=== PATIENT | female | born 1965 | race Caucasian/White ===

== ENCOUNTER 2019-11-11 19:44 | Inpatient (IN) | payer SELFPAY ==
[~2019-11-11] VITALS: Ht 157.5 cm; Wt 66.0 kg
[2019-11-11 20:43] LABS: BILIRUBIN,URINE NEGATIVE (NEG); CLARITY,URINE CLEAR; COLOR,URINE YELLOW; NITRITE,URINE NEGATIVE (NEG); PH,URINE 5.5; PROTEIN,URINE 100 mg/dL (NEG-TRACE)
[2019-11-11] MEDS ORDERED: fentaNYL PF VIAL 100 MCG/2 ML VIAL IV PRN (20:45)
[2019-11-11 20:54] LABS: BASO # 0.1 x10^3/uL (0.0-0.2); BASO % 1 % (0-3); EOS # 0.2 x10^3/uL (0.0-0.7); EOS % 2 % (0-3); HEMATOCRIT 37.1 % (36.0-47.0); HEMOGLOBIN 12.1 g/dL (12.0-15.5); LYMPH # 0.9 x10^3/uL (1.0-4.8); LYMPH % 12 % (24-48); MEAN CORPUSCULAR HEMOGLOBIN 28 pg (25-35); MEAN CORPUSCULAR HGB CONC 33 g/dL (31-37); MEAN CORPUSCULAR VOLUME 87 fL (79-100); MONO # 0.6 x10^3/uL (0.0-1.1); MONO % 7 % (0-9); NEUT % 78 % (31-73); PLATELET COUNT 213 x10^3/uL (140-400); RED BLOOD COUNT 4.26 x10^6/uL (3.50-5.40); RED CELL DISTRIBUTION WIDTH 14.8 % (11.5-14.5); WHITE BLOOD COUNT 7.7 x10^3/uL (4.0-11.0)
[2019-11-11 20:55] LABS: BARBITURATES NEG (NEG); BENZODIAZEPINES NEG (NEG); CANNABINOIDS POS (NEG); COCAINE NEG (NEG); METHADONE NEG (NEG); OPIATES NEG (NEG); PHENCYCLIDINE NEG (NEG)
[2019-11-11 20:58] LABS: AMPHETAMINE/METHAMPHETAMINE POS (NEG)
[2019-11-11 20:59] LABS: BACTERIA,URINE FEW /HPF (0-FEW); HYALINE CASTS, URINE OCCASIONAL /HPF; SQUAMOUS EPITHELIAL CELL,UR MOD /LPF
[2019-11-11 21:03] LABS: PROTHROMBIN TIME PATIENT 14.8 SEC (11.7-14.0)
[2019-11-11 21:04] LABS: CALCIUM 8.7 mg/dL (8.5-10.1); CREATININE 2.1 mg/dL (0.6-1.0); GFR 24.4
[2019-11-11 21:12] LABS: ALBUMIN 3.4 g/dL (3.4-5.0); ALBUMIN/GLOBULIN RATIO 0.9 (1.0-1.7); MAGNESIUM 1.6 mg/dL (1.8-2.4); TOTAL BILIRUBIN 0.5 mg/dL (0.2-1.0); TOTAL PROTEIN 7.3 g/dL (6.4-8.2)
--- NOTE | 2019-11-11 22:45 | RAD ---
CT abdomen and pelvis without contrast: Reason for examination: Abdominal pain and swelling. Helical images were obtained through the abdomen and pelvis with no intravenous contrast administered. Reconstruction was performed in sagittal and coronal planes. Exposure: One or more of the following individualized dose reduction techniques were utilized for this examination: 1. Automated exposure control 2. Adjustment of the mA and/or kV according to patient size 3. Use of iterative reconstruction technique. The lung epperson show calcified granuloma in the left lower lobe. The heart size appears to be enlarged with a small pericardial effusion. No focal abnormality seen at the liver but the liver does appear to be enlarged at 20.3 cm. The spleen shows diffuse granuloma. No abnormalities of seen at the adrenal glands or pancreas. Gallbladder is contracted with no choleliths but there is some fluid around the gallbladder which may be related to the small amount of ascites present in the abdomen. The kidneys show no renal masses, renal calculi, hydronephrosis or evidence of obstructive uropathy. There is a moderate amount of gastric content but no wall thickening or obstruction is seen. The small intestinal tract shows no abnormal dilatation or wall thickening and no small bowel obstruction is evident. No abnormality seen at the appendix. The colon shows presence of diverticulosis but no evidence of diverticulitis. The abdominal aorta and inferior vena cava show no acute abnormalities. The bladder is not distended. No abnormality seen at the uterus. No adnexal masses are seen. There is free fluid in the pelvis. No free air is seen in the abdomen or pelvis. There is diffuse soft tissue edema consistent with anasarca. No acute bony abnormalities are seen but there is degenerative disc disease with vacuum phenomena and a grade 1 anterolisthesis of L4-L5 and there is degenerative disc disease with vacuum phenomena without subluxation seen at the L5-S1 disc level. There also appear to be bilateral pars defects at the L4-5 and L5-S1 levels. IMPRESSION: Cardiomegaly with a small amount of pericardial effusion. Ascites around the liver, gallbladder, in the left colic gutter and in the pelvis. Contracted gallbladder but no cholelithiasis. Enlarged liver at 20.3 cm without a focal lesion. Diverticulosis without diverticulitis. Anasarca. 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 Electronically signed by: Yamila Francois MD (11/11/2019 10:42 PM) [facility]
[2019-11-11] MEDS ORDERED: ONDANSETRON PF 4 MG/2 ML VIAL. IV PRN (23:00)
[2019-11-11] MEDS ORDERED: MORPHINE SULFATE 4 MG/ML VIAL. IV PRN (23:00)
--- NOTE | 2019-11-11 23:09 | PHYS DOC ---
Past Medical History Past Medical History: CAD, Heart Disease, Hypertension, Renal Failure (ENA ESCOBEDO APRN) Attending Signature I have participated in the care of this patient and I have reviewed and agree with all pertinent clinical information above including history, exam, and recommendations. (JENIFER ALFONSO MD) Adult General Chief Complaint Chief Complaint: ABDOMINAL PAIN HPI HPI Patient is a 54 year old female with history of renal failure, CHF, CAD, hypertension, Ascites, hepatitis, who presents to the ED today complaining of fluid retention. She states for the last 24 hours she feels like she is retaining more fluid around her abdomen and legs. Patient states she's been told before she has kidney issues as well as cardiac issues and will be retaining fluids. She states she was admitted at [facility] week ago and then drained a couple liters of fluid from her abdomen. Patient denies any chest pain, denies any shortness of breath. She states she is not on any medications because she cannot afford (ENA ESCOBEDO APRN) Review of Systems Review of Systems Constitutional: Denies fever or chills [] Eyes: Denies change in visual acuity, redness, or eye pain [] HENT: Denies nasal congestion or sore throat [] Respiratory: Denies cough or shortness of breath [] Cardiovascular: Reports CHF GI: Reports fluid retention, denies nausea, vomiting, bloody stools or diarrhea [] : Denies dysuria or hematuria [] Musculoskeletal: Denies back pain or joint pain [] Integument: Denies rash or skin lesions [] Neurologic: Denies headache, focal weakness or sensory changes [] All other systems were reviewed and found to be within normal limits, except as documented in this note. (ENA ESCOBEDO APRN) Current Medications Current Medications Current Medications Medications (Trade) Dose Ordered Sig/Ju Start Time Stop Time Status Last Admin Dose Admin Fentanyl Citrate (Fentanyl 2ml Vial) 50 mcg PRN Q15MIN PRN 11/11/19 20:45 11/12/19 20:44 11/11/19 22:06 50 MCG (JENIFER ALFONSO MD) Allergies Allergies Allergies Coded Allergies Type Severity Reaction Last Updated Verified No Known Drug Allergies 11/11/19 No (JENIFER ALFONSO MD) Physical Exam Physical Exam Constitutional: Well developed, well nourished, no acute distress, non-toxic appearance. [] HENT: Normocephalic, atraumatic, bilateral external ears normal, oropharynx moist, no oral exudates, nose normal. [] Eyes: PERRLA, EOMI, conjunctiva normal, no discharge. [] Neck: Normal range of motion, no tenderness, supple, no stridor. [] Cardiovascular:Heart rate regular rhythm, no murmur [] Lungs & Thorax: Bilateral breath sounds clear to auscultation [] Abdomen: Rounded abdomen consistent with ascites. Bowel sounds normal, soft, no tenderness, no masses, no pulsatile masses. [] Skin: Warm, dry, no erythema, no rash. [] Back: No tenderness, no CVA tenderness. [] Extremities: No tenderness, no cyanosis, no clubbing, ROM intact, +1 edema noted to bilateral lower extremities Neurologic: Alert and oriented X 3, normal motor function, normal sensory function, no focal deficits noted. [] Psychologic: Affect normal, judgement normal, mood normal. [] (ENA ECSOBEDO APRN) Current Patient Data Vital Signs Vital Signs Date Time Temp Pulse Resp B/P (MAP) Pulse Ox O2 Delivery O2 Flow Rate FiO2 11/11/19 20:58 96 16 151/93 (112) 98 Room Air 11/11/19 20:18 97.7 97.7 (JENIFER ALFONSO MD) Lab Values Laboratory Tests Test 11/11/19 20:20 11/11/19 20:43 Urine Collection Type Void Urine Color Yellow Urine Clarity Clear Urine pH 5.5 Urine Specific [place] 1.015 Urine Protein 100 mg/dL (NEG-TRACE) Urine Glucose (UA) Negative mg/dL (NEG) Urine Ketones (Stick) Negative mg/dL (NEG) Urine Blood Negative (NEG) Urine Nitrite Negative (NEG) Urine Bilirubin Negative (NEG) Urine Urobilinogen Dipstick 1.0 mg/dL (0.2 mg/dL) Urine Leukocyte Esterase Small (NEG) Urine RBC 1-2 /HPF (0-2) Urine WBC 5-10 /HPF (0-4) Urine Squamous Epithelial Cells Mod /LPF Urine Bacteria Few /HPF (0-FEW) Urine Hyaline Casts Occasional /HPF Urine Opiates Screen Neg (NEG) Urine Methadone Screen Neg (NEG) Urine Barbiturates Neg (NEG) Urine Phencyclidine Screen Neg (NEG) Urine Amphetamine/Methamphetamine Pos (NEG) Urine Benzodiazepines Screen Neg (NEG) Urine Cocaine Screen Neg (NEG) Urine Cannabinoids Screen Pos (NEG) Urine Ethyl Alcohol Neg (NEG) White Blood Count 7.7 x10^3/uL (4.0-11.0) Red Blood Count 4.26 x10^6/uL (3.50-5.40) Hemoglobin 12.1 g/dL (12.0-15.5) Hematocrit 37.1 % (36.0-47.0) Mean Corpuscular Volume 87 fL (79-100) Mean Corpuscular Hemoglobin 28 pg (25-35) Mean Corpuscular Hemoglobin Concent 33 g/dL (31-37) Red Cell Distribution Width 14.8 % (11.5-14.5) H Platelet Count 213 x10^3/uL (140-400) Neutrophils (%) (Auto) 78 % (31-73) H Lymphocytes (%) (Auto) 12 % (24-48) L Monocytes (%) (Auto) 7 % (0-9) Eosinophils (%) (Auto) 2 % (0-3) Basophils (%) (Auto) 1 % (0-3) Neutrophils # (Auto) 6.0 x10^3/uL (1.8-7.7) Lymphocytes # (Auto) 0.9 x10^3/uL (1.0-4.8) L Monocytes # (Auto) 0.6 x10^3/uL (0.0-1.1) Eosinophils # (Auto) 0.2 x10^3/uL (0.0-0.7) Basophils # (Auto) 0.1 x10^3/uL (0.0-0.2) Prothrombin Time 14.8 SEC (11.7-14.0) H Prothrombin Time INR 1.2 (0.8-1.1) H Sodium Level 138 mmol/L (136-145) Potassium Level 4.0 mmol/L (3.5-5.1) Chloride Level 102 mmol/L (98-107) Carbon Dioxide Level 29 mmol/L (21-32) Anion Gap 7 (6-14) Blood Urea Nitrogen 51 mg/dL (7-20) H Creatinine 2.1 mg/dL (0.6-1.0) H Estimated GFR (Cockcroft-Gault) 24.4 BUN/Creatinine Ratio 24 (6-20) H Glucose Level 121 mg/dL (70-99) H Calcium Level 8.7 mg/dL (8.5-10.1) Magnesium Level 1.6 mg/dL (1.8-2.4) L Total Bilirubin 0.5 mg/dL (0.2-1.0) Aspartate Amino Transferase (AST) 32 U/L (15-37) Alanine Aminotransferase (ALT) 30 U/L (14-59) Alkaline Phosphatase 130 U/L (46-116) H Creatine Kinase 270 U/L (26-192) H Creatine Kinase MB (Mass) 14.9 ng/mL (0.0-3.6) H Creatine Kinase MB Relative Index 5.5 % (0-4) H Troponin I Quantitative 0.087 ng/mL (0.000-0.055) PY-Rrg-A-Type Natriuretic Peptide 92458 pg/mL (0-124) H Total Protein 7.3 g/dL (6.4-8.2) Albumin 3.4 g/dL (3.4-5.0) Albumin/Globulin Ratio 0.9 (1.0-1.7) L Lipase 105 U/L (73-393) Thyroid Stimulating Hormone (TSH) 2.403 uIU/mL (0.358-3.74) Ethyl Alcohol Level < 10 mg/dL (0-10) Laboratory Tests 11/11/19 20:43 Laboratory Tests 11/11/19 20:43 (JENIFER ALFONSO MD) EKG EKG Interpreted by Nikko sinus rhythm HR 91 no STEMI[] (ENA ESCOBEDO APRN) Radiology/Procedures Radiology/Procedures []PROCEDURE: CT ABDOMEN PELVIS WO CONTRAST CT abdomen and pelvis without contrast: Reason for examination: Abdominal pain and swelling. Helical images were obtained through the abdomen and pelvis with no intravenous contrast administered. Reconstruction was performed in sagittal and coronal planes. Exposure: One or more of the following individualized dose reduction techniques were utilized for this examination: 1. Automated exposure control 2. Adjustment of the mA and/or kV according to patient size 3. Use of iterative reconstruction technique. The lung epperson show calcified granuloma in the left lower lobe. The heart size appears to be enlarged with a small pericardial effusion. No focal abnormality seen at the liver but the liver does appear to be enlarged at 20.3 cm. The spleen shows diffuse granuloma. No abnormalities of seen at the adrenal glands or pancreas. Gallbladder is contracted with no choleliths but there is some fluid around the gallbladder which may be related to the small amount of ascites present in the abdomen. The kidneys show no renal masses, renal calculi, hydronephrosis or evidence of obstructive uropathy. There is a moderate amount of gastric content but no wall thickening or obstruction is seen. The small intestinal tract shows no abnormal dilatation or wall thickening and no small bowel obstruction is evident. No abnormality seen at the appendix. The colon shows presence of diverticulosis but no evidence of diverticulitis. The abdominal aorta and inferior vena cava show no acute abnormalities. The bladder is not distended. No abnormality seen at the uterus. No adnexal masses are seen. There is free fluid in the pelvis. No free air is seen in the abdomen or pelvis. There is diffuse soft tissue edema consistent with anasarca. No acute bony abnormalities are seen but there is degenerative disc disease with vacuum phenomena and a grade 1 anterolisthesis of L4-L5 and there is degenerative disc disease with vacuum phenomena without subluxation seen at the L5-S1 disc level. There also appear to be bilateral pars defects at the L4-5 and L5-S1 levels. IMPRESSION: Cardiomegaly with a small amount of pericardial effusion. Ascites around the liver, gallbladder, in the left colic gutter and in the pelvis. Contracted gallbladder but no cholelithiasis. Enlarged liver at 20.3 cm without a focal lesion. Diverticulosis without diverticulitis. Anasarca. 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 Electronically signed by: Cassy Berman MD (11/11/2019 10:42 PM) [facility] DICTATED and SIGNED BY: CASSY BERMAN MD DATE: 11/11/192241 (ENA ESCOBEDO APRN) Course & Med Decision Making Course & Med Decision Making Pertinent Labs and Imaging studies reviewed. (See chart for details) This is a 54-year-old female patient presenting to the ED today complaining of fluid retention. Patient has history of hypertension, ascites, CHF, renal padmaja lure. Was somewhat admitted at [facility] last week and reports that they drained a couple liters of fluid from her abdomen. CBC with a normal WBC, CMP with creatinine of 2.1, BUN of 51, CK noted at 270, troponin 0.082, patient reports she has history of elevated troponin, EKG and is negative, she has no chest pain. She reports she was seen by a farm loan representative who informed her she has layers of fluid in between her heart chambers. She reports she is supposed to take a water pill which she does not take, she reports she does not take her blood pressure medicines or any other medicines. BNP 12,726. Spoke with Dr. Atwood who accepted patient for admission (ENA ESCOBEDO APRN) Dragon Disclaimer Dragon Disclaimer This electronic medical record was generated, in whole or in part, using a voice recognition dictation system. (ENA ESCOBEDO APRN) Departure Departure Impression: Primary Impression: CHF (congestive heart failure) Additional Impressions: Elevated troponin Acute on chronic renal failure Ascites Referrals: NO PCP (PCP) Problem Qualifiers Primary Impression: CHF (congestive heart failure) Heart failure type: unspecified Heart failure chronicity: acute Qualified Codes: I50.9 - Heart failure, unspecified Additional Impressions: Acute on chronic renal failure Acute renal failure type: unspecified Chronic kidney disease stage: unspecified stage Qualified Codes: N17.9 - Acute kidney failure, unspecified; N18.9 - Chronic kidney disease, unspecified Ascites Ascites type: other type Qualified Codes: R18.8 - Other ascites ENA ESCOBEDO APRN Nov 11, 2019 23:09 JENIFER ALFONSO MD Nov 12, 2019 19:23
[2019-11-11] MEDS ORDERED: ASPIRIN 325 MG TABLET PO ONE (23:30)
[2019-11-11] MEDS: diphenhydrAMINE 50 MG/ML VIAL IVP PRN (23:36)
[2019-11-12] VITALS (7 sets, daily range): BP systolic 151–184; BP diastolic 79–101
--- NOTE | 2019-11-12 07:01 | NUR ---
Patient arrived to unit at approx 0020 accompanied by ED RN. No complaints of pain, resting comfortably on RA. Patient states that she does not take any medications since she cannot afford them. Also stated that she is the tax accounting manager at [employer] but missed open enrollment for insurance and currently doesn't have insurance so she cannot get meds. VS complete- BP slightly elevated, assessment complete. Patient states that she currently smokes 1 ppd cig, meth, and marijuana. Last smoked meth yesterday. Patient also stated that she was recently an inpatient at [facility] for Ascites and had fluid drained from her abd. Bed in low locked position, call light in reach, reminded patient to call if assistance is needed. will continue to monitor.
[2019-11-12 07:14] LABS: ALBUMIN 3.3 g/dL (3.4-5.0); ALBUMIN/GLOBULIN RATIO 0.9 (1.0-1.7); CALCIUM 8.9 mg/dL (8.5-10.1); CREATININE 1.9 mg/dL (0.6-1.0); GFR 27.3; POTASSIUM 3.9 mmol/L (3.5-5.1); TOTAL BILIRUBIN 0.5 mg/dL (0.2-1.0); TOTAL PROTEIN 7.1 g/dL (6.4-8.2)
[2019-11-12 07:19] LABS: BASO # 0.1 x10^3/uL (0.0-0.2); BASO % 1 % (0-3); EOS # 0.2 x10^3/uL (0.0-0.7); EOS % 3 % (0-3); HEMATOCRIT 37.2 % (36.0-47.0); HEMOGLOBIN 12.1 g/dL (12.0-15.5); LYMPH # 1.1 x10^3/uL (1.0-4.8); LYMPH % 16 % (24-48); MEAN CORPUSCULAR HEMOGLOBIN 29 pg (25-35); MEAN CORPUSCULAR HGB CONC 33 g/dL (31-37); MEAN CORPUSCULAR VOLUME 89 fL (79-100); MONO # 0.7 x10^3/uL (0.0-1.1); MONO % 10 % (0-9); NEUT # 4.7 x10^3/uL (1.8-7.7); NEUT % 70 % (31-73); PLATELET COUNT 199 x10^3/uL (140-400); RED CELL DISTRIBUTION WIDTH 15.1 % (11.5-14.5); WHITE BLOOD COUNT 6.8 x10^3/uL (4.0-11.0)
--- NOTE | 2019-11-12 07:48 | RAD ---
PORTABLE CHEST 1V History: Fluid retention.. No prior study for comparison. The cardiomediastinal silhouette is enlarged. No evidence of pneumothorax or pleural effusion. Fullness of central pulmonary vasculature compatible with mild congestion. Mild interstitial opacity, probably perihilar. Small dense nodule seen in the left lung base, measures about 7 mm. This may represent a dense granuloma which was also seen on CT abdomen pelvis of 11/11/2019. No consolidating airspace disease. Bones appear grossly intact IMPRESSION: 1. Findings compatible with mild congestive failure or fluid overload. Interstitial opacities are likely pulmonary edema. 2. Small dense left lung base nodule, probably the granuloma seen on CT abdomen pelvis study the same day. Electronically signed by: Roberth Barrera MD (11/12/2019 7:45 AM) [facility]
[2019-11-12] MEDS: diphenhydrAMINE 50 MG/ML VIAL IVP PRN (08:10)
[2019-11-12] MEDS ORDERED: FLU VAX QS 2019-20 (36MOS+)/PF 0.5 ML SYRINGE. VAX IM ONE (09:00)
[2019-11-12] MEDS ORDERED: ONDANSETRON PF 4 MG/2 ML VIAL. IVP PRN (09:15)
[2019-11-12] MEDS ORDERED: LABETALOL 20 MG/4 ML DISP.SYRIN. IVP PRN (09:15)
[2019-11-12] MEDS ORDERED: FUROSEMIDE 40 MG/4 ML VIAL. IVP ONE ×2 (09:15→15:00)
[2019-11-12] MEDS ORDERED: MORPHINE SULFATE 2 MG/ML VIAL. IV PRN (09:15)
[2019-11-12] MEDS ORDERED: CALCIUM CARBONATE 500 MG TAB.CHEW PO PRN (09:15)
[2019-11-12] MEDS ORDERED: ACETAMINOPHEN 500 MG TABLET PO PRN (09:15)
[2019-11-12] MEDS ORDERED: ACETAMINOPHEN/CODEINE 300/30MG TABLET. PO PRN (09:15)
--- NOTE | 2019-11-12 10:58 | PDOC1 ---
History and Physical Date of Admission Date of Admission DATE: 11/12/19 TIME: 10:52 Identification/Chief Complaint Chief Complaint abd is "big " Source Source: Caregiver, Chart review, Patient History of Present Illness History of Present Illness 54 yo not the best historian, off bP meds bec of cost, SP status, Was at [facility] 2.5 mos ago for the same, big belly - needed IV diuretic (no paracentesis)/ SHE does not recall the home meds she was dcd with (Sounds like BP meds and diuretic) CT shows anasarca, she has a lot of excessive skin and abdominal striae and has lost a lot of weight she claims, They took out 9 lbs water weight at [facility] per her relay SHe has hepatomegaly on CT but no discrete focal liver lesions She initialy denies etoh use hx but sonds like she had this in the past and is just not forthcoming with it, She occ smokes, NO home meds to reconcile She is tachy and hypertensive currently CT: Cardiomegaly with a small amount of pericardial effusion. Ascites around the liver, gallbladder, in the left colic gutter and in the pelvis. Contracted gallbladder but no cholelithiasis. Enlarged liver at 20.3 cm without a focal lesion. Diverticulosis without diverticulitis. Anasarca. 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 Past Medical History Cardiovascular: HTN Past Surgical History Past Surgical History: Other (unknown), No pertinent history Family History Family History: Family History Unknown Social History Smoke: <1 pack per day ALCOHOL: other (hx of heavy?) Drugs: None Current Problem List Problem List Problems Medical Problems: (1) Acute on chronic renal failure Status: Acute (2) Ascites Status: Acute Current Medications Current Medications Current Medications Fentanyl Citrate (Fentanyl 2ml Vial) 50 mcg PRN Q15MIN PRN IV PAIN GREATER THAN 3/10 Last administered on 11/11/19at 22:06; Start 11/11/19 at 20:45; Stop 11/12/19 at 20:44 Ondansetron HCl (Zofran) 4 mg PRN Q8HRS PRN IV NAUSEA/VOMITING 1ST CHOICE; Start 11/11/19 at 23:00; Stop 11/12/19 at 22:59 Morphine Sulfate (Morphine Sulfate) 4 mg PRN Q2HR PRN IV SEVERE PAIN 7-10; Start 11/11/19 at 23:00; Stop 11/12/19 at 22:59 Diphenhydramine HCl (Benadryl) 25 mg PRN Q6HRS PRN IVP ITCHING Last administered on 11/12/19at 08:10; Start 11/11/19 at 23:00 Aspirin (Nelly Aspirin) 325 mg 1X ONCE PO Last administered on 11/11/19at 23:36; Start 11/11/19 at 23:30; Stop 11/11/19 at 23:31; Status DC Influenza Virus Vaccine Quadrival (Afluria Quad 2019-20 (3yr Up) Syringe) 0.5 ml ONCE ONCE VAX IM Last administered on 11/12/19at 08:10; Start 11/12/19 at 09:00; Stop 11/12/19 at 09:01; Status DC Ondansetron HCl (Zofran) 4 mg PRN Q6HRS PRN IVP NAUSEA/VOMITING; Start 11/12/19 at 09:15 Morphine Sulfate (Morphine Sulfate) 2 mg PRN Q2HR PRN IV PAIN; Start 11/12/19 at 09:15 Acetaminophen (Tylenol) 500 mg PRN Q6HRS PRN PO MILD PAIN / TEMP; Start 11/12/19 at 09:15 Acetaminophen/ Codeine Phosphate (Tylenol #3) 1 tab PRN Q6HRS PRN PO PAIN; Start 11/12/19 at 09:15 Labetalol HCl (Normodyne Iv Push) 10 mg PRN Q2HR PRN IVP HYPERTENSION; Start 11/12/19 at 09:15 Calcium Carbonate/ Glycine (Tums) 500 mg PRN AFTMEALHC PRN PO INDIGESTION; Start 11/12/19 at 09:15 Furosemide (Lasix) 40 mg 1X ONCE IVP Last administered on 11/12/19at 09:36; Start 11/12/19 at 09:15; Stop 11/12/19 at 09:16; Status DC Allergies Allergies: Coded Allergies: No Known Drug Allergies (Unverified , 11/11/19) ROS Review of System as per HP, all else is neg Physical Exam General: Alert, Oriented X3, Cooperative, No acute distress HEENT: Atraumatic, PERRLA, EOMI Lungs: Clear to auscultation, Normal air movement Heart: RRR, no thrills, no rubs, no gallops, other (sinus tachy) Breasts: Normal, Rt breast nml w/o mass, Lt breast nml w/o mass, Nipples normal Abdomen: Normal bowel sounds, Soft, Other (lots of excessive skna nd abdominal straie, NOT DISTENDED) Rectal Exam: not examined PELVIC: Nml ext genitalia Extremities: No clubbing, No cyanosis, No edema, Normal pulses, No tenderness/swelling Skin: No rashes, No breakdown, No significant lesion Neuro: Normal gait, Normal speech, Strength at 5/5 X4 ext, Normal tone, Sen sation intact, Cranial nerves 3-12 NL, Reflexes 2+ Psych/Mental Status: Mental status NL, Mood NL Vitals Vitals Vital Signs Date Time Temp Pulse Resp B/P (MAP) Pulse Ox O2 Delivery O2 Flow Rate FiO2 11/12/19 09:00 Room Air 11/12/19 07:00 96.3 98 20 163/95 (117) 93 96.3 Labs Labs Laboratory Tests Test 11/11/19 20:20 11/11/19 20:43 11/12/19 00:12 11/12/19 05:00 Urine Collection Type Void Urine Color Yellow Urine Clarity Clear Urine pH 5.5 Urine Specific [place] 1.015 Urine Protein 100 mg/dL (NEG-TRACE) Urine Glucose (UA) Negative mg/dL (NEG) Urine Ketones (Stick) Negative mg/dL (NEG) Urine Blood Negative (NEG) Urine Nitrite Negative (NEG) Urine Bilirubin Negative (NEG) Urine Urobilinogen Dipstick 1.0 mg/dL (0.2 mg/dL) Urine Leukocyte Esterase Small (NEG) Urine RBC 1-2 /HPF (0-2) Urine WBC 5-10 /HPF (0-4) Urine Squamous Epithelial Cells Mod /LPF Urine Bacteria Few /HPF (0-FEW) Urine Hyaline Casts Occasional /HPF Urine Opiates Screen Neg (NEG) Urine Methadone Screen Neg (NEG) Urine Barbiturates Neg (NEG) Urine Phencyclidine Screen Neg (NEG) Urine Amphetamine/Methamphetamine Pos (NEG) Urine Benzodiazepines Screen Neg (NEG) Urine Cocaine Screen Neg (NEG) Urine Cannabinoids Screen Pos (NEG) Urine Ethyl Alcohol Neg (NEG) White Blood Count 7.7 x10^3/uL (4.0-11.0) 6.8 x10^3/uL (4.0-11.0) Red Blood Count 4.26 x10^6/uL (3.50-5.40) 4.20 x10^6/uL (3.50-5.40) Hemoglobin 12.1 g/dL (12.0-15.5) 12.1 g/dL (12.0-15.5) Hematocrit 37.1 % (36.0-47.0) 37.2 % (36.0-47.0) Mean Corpuscular Volume 87 fL (79-100) 89 fL (79-100) Mean Corpuscular Hemoglobin 28 pg (25-35) 29 pg (25-35) Mean Corpuscular Hemoglobin Concent 33 g/dL (31-37) 33 g/dL (31-37) Red Cell Distribution Width 14.8 % (11.5-14.5) 15.1 % (11.5-14.5) Platelet Count 213 x10^3/uL (140-400) 199 x10^3/uL (140-400) Neutrophils (%) (Auto) 78 % (31-73) 70 % (31-73) Lymphocytes (%) (Auto) 12 % (24-48) 16 % (24-48) Monocytes (%) (Auto) 7 % (0-9) 10 % (0-9) Eosinophils (%) (Auto) 2 % (0-3) 3 % (0-3) Basophils (%) (Auto) 1 % (0-3) 1 % (0-3) Neutrophils # (Auto) 6.0 x10^3/uL (1.8-7.7) 4.7 x10^3/uL (1.8-7.7) Lymphocytes # (Auto) 0.9 x10^3/uL (1.0-4.8) 1.1 x10^3/uL (1.0-4.8) Monocytes # (Auto) 0.6 x10^3/uL (0.0-1.1) 0.7 x10^3/uL (0.0-1.1) Eosinophils # (Auto) 0.2 x10^3/uL (0.0-0.7) 0.2 x10^3/uL (0.0-0.7) Basophils # (Auto) 0.1 x10^3/uL (0.0-0.2) 0.1 x10^3/uL (0.0-0.2) Prothrombin Time 14.8 SEC (11.7-14.0) Prothromb Time International Ratio 1.2 (0.8-1.1) Sodium Level 138 mmol/L (136-145) 140 mmol/L (136-145) Potassium Level 4.0 mmol/L (3.5-5.1) 3.9 mmol/L (3.5-5.1) Chloride Level 102 mmol/L (98-107) 102 mmol/L (98-107) Carbon Dioxide Level 29 mmol/L (21-32) 27 mmol/L (21-32) Anion Gap 7 (6-14) 11 (6-14) Blood Urea Nitrogen 51 mg/dL (7-20) 49 mg/dL (7-20) Creatinine 2.1 mg/dL (0.6-1.0) 1.9 mg/dL (0.6-1.0) Estimated GFR (Cockcroft-Gault) 24.4 27.3 BUN/Creatinine Ratio 24 (6-20) 26 (6-20) Glucose Level 121 mg/dL (70-99) 89 mg/dL (70-99) Calcium Level 8.7 mg/dL (8.5-10.1) 8.9 mg/dL (8.5-10.1) Magnesium Level 1.6 mg/dL (1.8-2.4) Total Bilirubin 0.5 mg/dL (0.2-1.0) 0.5 mg/dL (0.2-1.0) Aspartate Amino Transf (AST/SGOT) 32 U/L (15-37) 34 U/L (15-37) Alanine Aminotransferase (ALT/SGPT) 30 U/L (14-59) 27 U/L (14-59) Alkaline Phosphatase 130 U/L (46-116) 123 U/L (46-116) Creatine Kinase 270 U/L (26-192) Creatine Kinase MB (Mass) 14.9 ng/mL (0.0-3.6) Creatine Kinase MB Relative Index 5.5 % (0-4) Troponin I Quantitative 0.087 ng/mL (0.000-0.055) 0.111 ng/mL (0.000-0.055) 0.090 ng/mL (0.000-0.055) AB-Egx-P-Type Natriuretic Peptide 76984 pg/mL (0-124) Total Protein 7.3 g/dL (6.4-8.2) 7.1 g/dL (6.4-8.2) Albumin 3.4 g/dL (3.4-5.0) 3.3 g/dL (3.4-5.0) Albumin/Globulin Ratio 0.9 (1.0-1.7) 0.9 (1.0-1.7) Lipase 105 U/L (73-393) Thyroid Stimulating Hormone (TSH) 2.403 uIU/mL (0.358-3.74) Ethyl Alcohol Level < 10 mg/dL (0-10) Laboratory Tests Test 11/11/19 20:20 11/11/19 20:43 11/12/19 00:12 11/12/19 05:00 Urine Collection Type Void Urine Color Yellow Urine Clarity Clear Urine pH 5.5 Urine Specific [place] 1.015 Urine Protein 100 mg/dL (NEG-TRACE) Urine Glucose (UA) Negative mg/dL (NEG) Urine Ketones (Stick) Negative mg/dL (NEG) Urine Blood Negative (NEG) Urine Nitrite Negative (NEG) Urine Bilirubin Negative (NEG) Urine Urobilinogen Dipstick 1.0 mg/dL (0.2 mg/dL) Urine Leukocyte Esterase Small (NEG) Urine RBC 1-2 /HPF (0-2) Urine WBC 5-10 /HPF (0-4) Urine Squamous Epithelial Cells Mod /LPF Urine Bacteria Few /HPF (0-FEW) Urine Hyaline Casts Occasional /HPF Urine Opiates Screen Neg (NEG) Urine Methadone Screen Neg (NEG) Urine Barbiturates Neg (NEG) Urine Phencyclidine Screen Neg (NEG) Urine Amphetamine/Methamphetamine Pos (NEG) Urine Benzodiazepines Screen Neg (NEG) Urine Cocaine Screen Neg (NEG) Urine Cannabinoids Screen Pos (NEG) Urine Ethyl Alcohol Neg (NEG) White Blood Count 7.7 x10^3/uL (4.0-11.0) 6.8 x10^3/uL (4.0-11.0) Red Blood Count 4.26 x10^6/uL (3.50-5.40) 4.20 x10^6/uL (3.50-5.40) Hemoglobin 12.1 g/dL (12.0-15.5) 12.1 g/dL (12.0-15.5) Hematocrit 37.1 % (36.0-47.0) 37.2 % (36.0-47.0) Mean Corpuscular Volume 87 fL (79-100) 89 fL (79-100) Mean Corpuscular Hemoglobin 28 pg (25-35) 29 pg (25-35) Mean Corpuscular Hemoglobin Concent 33 g/dL (31-37) 33 g/dL (31-37) Red Cell Distribution Width 14.8 % (11.5-14.5) 15.1 % (11.5-14.5) Platelet Count 213 x10^3/uL (140-400) 199 x10^3/uL (140-400) Neutrophils (%) (Auto) 78 % (31-73) 70 % (31-73) Lymphocytes (%) (Auto) 12 % (24-48) 16 % (24-48) Monocytes (%) (Auto) 7 % (0-9) 10 % (0-9) Eosinophils (%) (Auto) 2 % (0-3) 3 % (0-3) Basophils (%) (Auto) 1 % (0-3) 1 % (0-3) Neutrophils # (Auto) 6.0 x10^3/uL (1.8-7.7) 4.7 x10^3/uL (1.8-7.7) Lymphocytes # (Auto) 0.9 x10^3/uL (1.0-4.8) 1.1 x10^3/uL (1.0-4.8) Monocytes # (Auto) 0.6 x10^3/uL (0.0-1.1) 0.7 x10^3/uL (0.0-1.1) Eosinophils # (Auto) 0.2 x10^3/uL (0.0-0.7) 0.2 x10^3/uL (0.0-0.7) Basophils # (Auto) 0.1 x10^3/uL (0.0-0.2) 0.1 x10^3/uL (0.0-0.2) Prothrombin Time 14.8 SEC (11.7-14.0) Prothromb Time International Ratio 1.2 (0.8-1.1) Sodium Level 138 mmol/L (136-145) 140 mmol/L (136-145) Potassium Level 4.0 mmol/L (3.5-5.1) 3.9 mmol/L (3.5-5.1) Chloride Level 102 mmol/L (98-107) 102 mmol/L (98-107) Carbon Dioxide Level 29 mmol/L (21-32) 27 mmol/L (21-32) Anion Gap 7 (6-14) 11 (6-14) Blood Urea Nitrogen 51 mg/dL (7-20) 49 mg/dL (7-20) Creatinine 2.1 mg/dL (0.6-1.0) 1.9 mg/dL (0.6-1.0) Estimated GFR (Cockcroft-Gault) 24.4 27.3 BUN/Creatinine Ratio 24 (6-20) 26 (6-20) Glucose Level 121 mg/dL (70-99) 89 mg/dL (70-99) Calcium Level 8.7 mg/dL (8.5-10.1) 8.9 mg/dL (8.5-10.1) Magnesium Level 1.6 mg/dL (1.8-2.4) Total Bilirubin 0.5 mg/dL (0.2-1.0) 0.5 mg/dL (0.2-1.0) Aspartate Amino Transf (AST/SGOT) 32 U/L (15-37) 34 U/L (15-37) Alanine Aminotransferase (ALT/SGPT) 30 U/L (14-59) 27 U/L (14-59) Alkaline Phosphatase 130 U/L (46-116) 123 U/L (46-116) Creatine Kinase 270 U/L (26-192) Creatine Kinase MB (Mass) 14.9 ng/mL (0.0-3.6) Creatine Kinase MB Relative Index 5.5 % (0-4) Troponin I Quantitative 0.087 ng/mL (0.000-0.055) 0.111 ng/mL (0.000-0.055) 0.090 ng/mL (0.000-0.055) FS-Iva-O-Type Natriuretic Peptide 30662 pg/mL (0-124) Total Protein 7.3 g/dL (6.4-8.2) 7.1 g/dL (6.4-8.2) Albumin 3.4 g/dL (3.4-5.0) 3.3 g/dL (3.4-5.0) Albumin/Globulin Ratio 0.9 (1.0-1.7) 0.9 (1.0-1.7) Lipase 105 U/L (73-393) Thyroid Stimulating Hormone (TSH) 2.403 uIU/mL (0.358-3.74) Ethyl Alcohol Level < 10 mg/dL (0-10) VTE Prophylaxis Ordered VTE Prophylaxis Devices: Yes VTE Pharmacological Prophylaxi: Yes Assessment/Plan Assessment/Plan Cardiomegaly with a small amount of pericardial effusion. Ascites around the liver, gallbladder, in the left colic gutter and in the pelvis. Contracted gallbladder but no cholelithiasis. Enlarged liver at 20.3 cm without a focal lesion. Diverticulosis without diverticulitis. Anasarca. 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 HTN accelerated - OFF MEDS< NON COMPLIANCE HX etoh? SMOKER< occ FADIA woth GFR 27 PLAN: 2 MN CVC bed, diurese, renal and cards consulted MAy eat Lytes ETOH cessation cat patch GET home emds COntrol BP fullc NAVID Juarez MD Nov 12, 2019 10:58
[2019-11-12] MEDS ORDERED: NICOTINE 21MG PATCH. TD PRN (11:00)
--- NOTE | 2019-11-12 14:52 | PDOC2 ---
CONSULT Date of Consult Date of Consult DATE: 11/12/19 TIME: 14:44 Reason for Consult Reason for Consult: RENAL FAILURE Referring Physician Referring Physician: TD History of Present Illness Reason for Visit: THIS IS A 54 YR OLD WITH COMPLAINTS OF FEELING SWOLLEN. HAS NOT BEEN TAKING MEDS. NOTED TO HAVE EDEMA AND FLUID RETENTION ON HER IMAGING STUDIES. CR OF 1.9. SHE IS NOT AWARE OF ANY CKD. NOT A GOOD HISTORIAN. CXRAY POS FOR CHF. NO NEPHROTOXINS NOTED. NO REPORTED HX. BP HAS BEEN HIGH CT: Cardiomegaly with a small amount of pericardial effusion. Ascites around the liver, gallbladder, in the left colic gutter and in the pelvis. Contracted gallbladder but no cholelithiasis. Enlarged liver at 20.3 cm without a focal lesion. Diverticulosis without diverticulitis. Anasarca. 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 Past Medical History Past Medical History NON COMPLIANCE Cardiovascular: HTN Renal/: Chronic renal insuff Past Surgical History Past Surgical History: Other (unknown), No pertinent history Family History Family History: Family History Unknown Social History <1 pack per day ALCOHOL: other (hx of heavy?) Drugs: None Lives: with Family Current Problem List Problem List Problems Medical Problems: (1) Acute on chronic renal failure Status: Acute (2) Ascites Status: Acute Current Medications Current Medications Current Medications Fentanyl Citrate (Fentanyl 2ml Vial) 50 mcg PRN Q15MIN PRN IV PAIN GREATER THAN 3/10 Last administered on 11/11/19at 22:06; Start 11/11/19 at 20:45; Stop 11/12/19 at 20:44 Ondansetron HCl (Zofran) 4 mg PRN Q8HRS PRN IV NAUSEA/VOMITING 1ST CHOICE; Start 11/11/19 at 23:00; Stop 11/12/19 at 22:59 Morphine Sulfate (Morphine Sulfate) 4 mg PRN Q2HR PRN IV SEVERE PAIN 7-10; Start 11/11/19 at 23:00; Stop 11/12/19 at 22:59 Diphenhydramine HCl (Benadryl) 25 mg PRN Q6HRS PRN IVP ITCHING Last administered on 11/12/19at 08:10; Start 11/11/19 at 23:00 Aspirin (Nelly Aspirin) 325 mg 1X ONCE PO Last administered on 11/11/19at 23:36; Start 11/11/19 at 23:30; Stop 11/11/19 at 23:31; Status DC Influenza Virus Vaccine Quadrival (Afluria Quad 2019-20 (3yr Up) Syringe) 0.5 ml ONCE ONCE VAX IM Last administered on 11/12/19at 08:10; Start 11/12/19 at 09:00; Stop 11/12/19 at 09:01; Status DC Ondansetron HCl (Zofran) 4 mg PRN Q6HRS PRN IVP NAUSEA/VOMITING; Start 11/12/19 at 09:15 Morphine Sulfate (Morphine Sulfate) 2 mg PRN Q2HR PRN IV PAIN; Start 11/12/19 at 09:15 Acetaminophen (Tylenol) 500 mg PRN Q6HRS PRN PO MILD PAIN / TEMP; Start 11/12/19 at 09:15 Acetaminophen/ Codeine Phosphate (Tylenol #3) 1 tab PRN Q6HRS PRN PO PAIN; Start 11/12/19 at 09:15 Labetalol HCl (Normodyne Iv Push) 10 mg PRN Q2HR PRN IVP HYPERTENSION Last administered on 11/12/19at 12:30; Start 11/12/19 at 09:15 Calcium Carbonate/ Glycine (Tums) 500 mg PRN AFTMEALHC PRN PO INDIGESTION; Start 11/12/19 at 09:15 Furosemide (Lasix) 40 mg 1X ONCE IVP Last administered on 11/12/19at 09:36; Start 11/12/19 at 09:15; Stop 11/12/19 at 09:16; Status DC Nicotine (Nicoderm Cq 21mg) 1 patch PRN DAILY PRN TD SMOKING CESSATION; Start 11/12/19 at 11:00 Allergies Allergies: Coded Allergies: No Known Drug Allergies (Unverified , 11/11/19) ROS General: YES: Fatigue, Appetite PSYCHOLOGICAL ROS: YES: Anxiety, Depression Eyes: Yes Decreased vision ALLERGY AND IMMUNOLOGY: YES: Seasonal Allergies Respiratory: YES: Cough, Shortness of breath, SOB with excertion Cardiovascular: yes Edema Gastrointestinal: Yes Constipation Genitourinary: YES Other (NOCTURIA) Musculoskeletal: Yes Muscular Weakness Neurological: Yes Weakness Skin: Yes Dry Skin Physical Exam General: Alert, Oriented X3, Cooperative, No acute distress HEENT: Atraumatic, PERRLA, EOMI Heart: Regular rate Abdomen: Normal bowel sounds, Soft, No tenderness Extremities: Other (+ EDEMA) Skin: No breakdown Neuro: Normal speech, Cranial nerves 3-12 NL Psych/Mental Status: Mood NL, Other (FLAT AFFECT) MUSCULOSKELETAL: No deformity Vitals VITALS Vital Signs Date Time Temp Pulse Resp B/P (MAP) Pulse Ox O2 Delivery O2 Flow Rate FiO2 11/12/19 12:30 100 184/101 11/12/19 11:00 96.2 20 97 Room Air 96.2 Labs Labs Laboratory Tests Test 11/11/19 20:20 11/11/19 20:43 11/12/19 00:12 11/12/19 05:00 Urine Collection Type Void Urine Color Yellow Urine Clarity Clear Urine pH 5.5 Urine Specific [place] 1.015 Urine Protein 100 mg/dL (NEG-TRACE) Urine Glucose (UA) Negative mg/dL (NEG) Urine Ketones (Stick) Negative mg/dL (NEG) Urine Blood Negative (NEG) Urine Nitrite Negative (NEG) Urine Bilirubin Negative (NEG) Urine Urobilinogen Dipstick 1.0 mg/dL (0.2 mg/dL) Urine Leukocyte Esterase Small (NEG) Urine RBC 1-2 /HPF (0-2) Urine WBC 5-10 /HPF (0-4) Urine Squamous Epithelial Cells Mod /LPF Urine Bacteria Few /HPF (0-FEW) Urine Hyaline Casts Occasional /HPF Urine Opiates Screen Neg (NEG) Urine Methadone Screen Neg (NEG) Urine Barbiturates Neg (NEG) Urine Phencyclidine Screen Neg (NEG) Urine Amphetamine/Methamphetamine Pos (NEG) Urine Benzodiazepines Screen Neg (NEG) Urine Cocaine Screen Neg (NEG) Urine Cannabinoids Screen Pos (NEG) Urine Ethyl Alcohol Neg (NEG) White Blood Count 7.7 x10^3/uL (4.0-11.0) 6.8 x10^3/uL (4.0-11.0) Red Blood Count 4.26 x10^6/uL (3.50-5.40) 4.20 x10^6/uL (3.50-5.40) Hemoglobin 12.1 g/dL (12.0-15.5) 12.1 g/dL (12.0-15.5) Hematocrit 37.1 % (36.0-47.0) 37.2 % (36.0-47.0) Mean Corpuscular Volume 87 fL (79-100) 89 fL (79-100) Mean Corpuscular Hemoglobin 28 pg (25-35) 29 pg (25-35) Mean Corpuscular Hemoglobin Concent 33 g/dL (31-37) 33 g/dL (31-37) Red Cell Distribution Width 14.8 % (11.5-14.5) 15.1 % (11.5-14.5) Platelet Count 213 x10^3/uL (140-400) 199 x10^3/uL (140-400) Neutrophils (%) (Auto) 78 % (31-73) 70 % (31-73) Lymphocytes (%) (Auto) 12 % (24-48) 16 % (24-48) Monocytes (%) (Auto) 7 % (0-9) 10 % (0-9) Eosinophils (%) (Auto) 2 % (0-3) 3 % (0-3) Basophils (%) (Auto) 1 % (0-3) 1 % (0-3) Neutrophils # (Auto) 6.0 x10^3/uL (1.8-7.7) 4.7 x10^3/uL (1.8-7.7) Lymphocytes # (Auto) 0.9 x10^3/uL (1.0-4.8) 1.1 x10^3/uL (1.0-4.8) Monocytes # (Auto) 0.6 x10^3/uL (0.0-1.1) 0.7 x10^3/uL (0.0-1.1) Eosinophils # (Auto) 0.2 x10^3/uL (0.0-0.7) 0.2 x10^3/uL (0.0-0.7) Basophils # (Auto) 0.1 x10^3/uL (0.0-0.2) 0.1 x10^3/uL (0.0-0.2) Prothrombin Time 14.8 SEC (11.7-14.0) Prothromb Time International Ratio 1.2 (0.8-1.1) Sodium Level 138 mmol/L (136-145) 140 mmol/L (136-145) Potassium Level 4.0 mmol/L (3.5-5.1) 3.9 mmol/L (3.5-5.1) Chloride Level 102 mmol/L (98-107) 102 mmol/L (98-107) Carbon Dioxide Level 29 mmol/L (21-32) 27 mmol/L (21-32) Anion Gap 7 (6-14) 11 (6-14) Blood Urea Nitrogen 51 mg/dL (7-20) 49 mg/dL (7-20) Creatinine 2.1 mg/dL (0.6-1.0) 1.9 mg/dL (0.6-1.0) Estimated GFR (Cockcroft-Gault) 24.4 27.3 BUN/Creatinine Ratio 24 (6-20) 26 (6-20) Glucose Level 121 mg/dL (70-99) 89 mg/dL (70-99) Calcium Level 8.7 mg/dL (8.5-10.1) 8.9 mg/dL (8.5-10.1) Magnesium Level 1.6 mg/dL (1.8-2.4) Total Bilirubin 0.5 mg/dL (0.2-1.0) 0.5 mg/dL (0.2-1.0) Aspartate Amino Transf (AST/SGOT) 32 U/L (15-37) 34 U/L (15-37) Alanine Aminotransferase (ALT/SGPT) 30 U/L (14-59) 27 U/L (14-59) Alkaline Phosphatase 130 U/L (46-116) 123 U/L (46-116) Creatine Kinase 270 U/L (26-192) Creatine Kinase MB (Mass) 14.9 ng/mL (0.0-3.6) Creatine Kinase MB Relative Index 5.5 % (0-4) Troponin I Quantitative 0.087 ng/mL (0.000-0.055) 0.111 ng/mL (0.000-0.055) 0.090 ng/mL (0.000-0.055) PF-Puo-U-Type Natriuretic Peptide 46949 pg/mL (0-124) Total Protein 7.3 g/dL (6.4-8.2) 7.1 g/dL (6.4-8.2) Albumin 3.4 g/dL (3.4-5.0) 3.3 g/dL (3.4-5.0) Albumin/Globulin Ratio 0.9 (1.0-1.7) 0.9 (1.0-1.7) Lipase 105 U/L (73-393) Thyroid Stimulating Hormone (TSH) 2.403 uIU/mL (0.358-3.74) Ethyl Alcohol Level < 10 mg/dL (0-10) Laboratory Tests Test 11/11/19 20:20 11/11/19 20:43 11/12/19 00:12 11/12/19 05:00 Urine Collection Type Void Urine Color Yellow Urine Clarity Clear Urine pH 5.5 Urine Specific [place] 1.015 Urine Protein 100 mg/dL (NEG-TRACE) Urine Glucose (UA) Negative mg/dL (NEG) Urine Ketones (Stick) Negative mg/dL (NEG) Urine Blood Negative (NEG) Urine Nitrite Negative (NEG) Urine Bilirubin Negative (NEG) Urine Urobilinogen Dipstick 1.0 mg/dL (0.2 mg/dL) Urine Leukocyte Esterase Small (NEG) Urine RBC 1-2 /HPF (0-2) Urine WBC 5-10 /HPF (0-4) Urine Squamous Epithelial Cells Mod /LPF Urine Bacteria Few /HPF (0-FEW) Urine Hyaline Casts Occasional /HPF Urine Opiates Screen Neg (NEG) Urine Methadone Screen Neg (NEG) Urine Barbiturates Neg (NEG) Urine Phencyclidine Screen Neg (NEG) Urine Amphetamine/Methamphetamine Pos (NEG) Urine Benzodiazepines Screen Neg (NEG) Urine Cocaine Screen Neg (NEG) Urine Cannabinoids Screen Pos (NEG) Urine Ethyl Alcohol Neg (NEG) White Blood Count 7.7 x10^3/uL (4.0-11.0) 6.8 x10^3/uL (4.0-11.0) Red Blood Count 4.26 x10^6/uL (3.50-5.40) 4.20 x10^6/uL (3.50-5.40) Hemoglobin 12.1 g/dL (12.0-15.5) 12.1 g/dL (12.0-15.5) Hematocrit 37.1 % (36.0-47.0) 37.2 % (36.0-47.0) Mean Corpuscular Volume 87 fL (79-100) 89 fL (79-100) Mean Corpuscular Hemoglobin 28 pg (25-35) 29 pg (25-35) Mean Corpuscular Hemoglobin Concent 33 g/dL (31-37) 33 g/dL (31-37) Red Cell Distribution Width 14.8 % (11.5-14.5) 15.1 % (11.5-14.5) Platelet Count 213 x10^3/uL (140-400) 199 x10^3/uL (140-400) Neutrophils (%) (Auto) 78 % (31-73) 70 % (31-73) Lymphocytes (%) (Auto) 12 % (24-48) 16 % (24-48) Monocytes (%) (Auto) 7 % (0-9) 10 % (0-9) Eosinophils (%) (Auto) 2 % (0-3) 3 % (0-3) Basophils (%) (Auto) 1 % (0-3) 1 % (0-3) Neutrophils # (Auto) 6.0 x10^3/uL (1.8-7.7) 4.7 x10^3/uL (1.8-7.7) Lymphocytes # (Auto) 0.9 x10^3/uL (1.0-4.8) 1.1 x10^3/uL (1.0-4.8) Monocytes # (Auto) 0.6 x10^3/uL (0.0-1.1) 0.7 x10^3/uL (0.0-1.1) Eosinophils # (Auto) 0.2 x10^3/uL (0.0-0.7) 0.2 x10^3/uL (0.0-0.7) Basophils # (Auto) 0.1 x10^3/uL (0.0-0.2) 0.1 x10^3/uL (0.0-0.2) Prothrombin Time 14.8 SEC (11.7-14.0) Prothromb Time International Ratio 1.2 (0.8-1.1) Sodium Level 138 mmol/L (136-145) 140 mmol/L (136-145) Potassium Level 4.0 mmol/L (3.5-5.1) 3.9 mmol/L (3.5-5.1) Chloride Level 102 mmol/L (98-107) 102 mmol/L (98-107) Carbon Dioxide Level 29 mmol/L (21-32) 27 mmol/L (21-32) Anion Gap 7 (6-14) 11 (6-14) Blood Urea Nitrogen 51 mg/dL (7-20) 49 mg/dL (7-20) Creatinine 2.1 mg/dL (0.6-1.0) 1.9 mg/dL (0.6-1.0) Estimated GFR (Cockcroft-Gault) 24.4 27.3 BUN/Creatinine Ratio 24 (6-20) 26 (6-20) Glucose Level 121 mg/dL (70-99) 89 mg/dL (70-99) Calcium Level 8.7 mg/dL (8.5-10.1) 8.9 mg/dL (8.5-10.1) Magnesium Level 1.6 mg/dL (1.8-2.4) Total Bilirubin 0.5 mg/dL (0.2-1.0) 0.5 mg/dL (0.2-1.0) Aspartate Amino Transf (AST/SGOT) 32 U/L (15-37) 34 U/L (15-37) Alanine Aminotransferase (ALT/SGPT) 30 U/L (14-59) 27 U/L (14-59) Alkaline Phosphatase 130 U/L (46-116) 123 U/L (46-116) Creatine Kinase 270 U/L (26-192) Creatine Kinase MB (Mass) 14.9 ng/mL (0.0-3.6) Creatine Kinase MB Relative Index 5.5 % (0-4) Troponin I Quantitative 0.087 ng/mL (0.000-0.055) 0.111 ng/mL (0.000-0.055) 0.090 ng/mL (0.000-0.055) SJ-Rdg-J-Type Natriuretic Peptide 26056 pg/mL (0-124) Total Protein 7.3 g/dL (6.4-8.2) 7.1 g/dL (6.4-8.2) Albumin 3.4 g/dL (3.4-5.0) 3.3 g/dL (3.4-5.0) Albumin/Globulin Ratio 0.9 (1.0-1.7) 0.9 (1.0-1.7) Lipase 105 U/L (73-393) Thyroid Stimulating Hormone (TSH) 2.403 uIU/mL (0.358-3.74) Ethyl Alcohol Level < 10 mg/dL (0-10) Assessment/Plan Assessment/Plan IMP CHF WITH PERICARDIAL EFFUSION RENAL FAILURE-SUSPECT FADIA ATOP CKD SUSPECT CKD STAGE 3 EDEMA/ANASARCA MALIGNANT HTN-NOT CONTROLLED PLAN IV LASIX START [facility] SUGGEST CARDIOLOGY EVAL/ECHO MAY NEED AFTER LOAD REDUCTION WITH RENE-I OR ARB CONTROL BP UA NEG FOR NEPHRITIS IMAGING CT NEG FOR ANY RENAL MORPHOLOGICAL CHANGES FIDELINA SHAFFER MD Nov 12, 2019 14:52
[2019-11-12] MEDS ORDERED: amLODIPine BESYLATE 5 MG TABLET PO ONE (15:00)
--- NOTE | 2019-11-12 15:25 | PDOC2 ---
CONSULT Date of Consult Date of Consult DATE: 11/12/19 TIME: 15:17 History of Present Illness Reason for Visit: This is a 54-year-old female who presents with a history of abdominal distention, lower extremity edema and shortness of breath. Symptoms she's had in the past and apparently was evaluated at [facility] and treated for fluid overload. He has a history of hypertension but denies a history of heart attack. She says that her kidney dysfunction is new as well. She does have a history of hepatitis C that was treated and eradicated according to her. She denies any chronic liver disease or cirrhosis and denies any alcohol use now but has drank in the past. She is either not able to get her meds or unable to afford them. There is some history of substance abuse and her urine drug screen is positive for methamphetamines. She denies nausea, vomiting, bleeding. Past Medical History Cardiovascular: HTN Hepatobiliary: Hep A/B/C (C previously treated) Renal/: Chronic renal insuff Past Surgical History Past Surgical History: Other (unknown), No pertinent history Family History Family History: Family History Unknown Social History <1 pack per day ALCOHOL: other (hx of heavy?) Drugs: None Lives: with Family Current Problem List Problem List Problems Medical Problems: (1) Acute on chronic renal failure Status: Acute (2) Ascites Status: Acute Current Medications Current Medications Current Medications Fentanyl Citrate (Fentanyl 2ml Vial) 50 mcg PRN Q15MIN PRN IV PAIN GREATER THAN 3/10 Last administered on 11/11/19at 22:06; Start 11/11/19 at 20:45; Stop 11/12/19 at 20:44 Ondansetron HCl (Zofran) 4 mg PRN Q8HRS PRN IV NAUSEA/VOMITING 1ST CHOICE; Start 11/11/19 at 23:00; Stop 11/12/19 at 22:59 Morphine Sulfate (Morphine Sulfate) 4 mg PRN Q2HR PRN IV SEVERE PAIN 7-10; Start 11/11/19 at 23:00; Stop 11/12/19 at 22:59 Diphenhydramine HCl (Benadryl) 25 mg PRN Q6HRS PRN IVP ITCHING Last adminis tered on 11/12/19at 08:10; Start 11/11/19 at 23:00 Aspirin (Nelly Aspirin) 325 mg 1X ONCE PO Last administered on 11/11/19at 23 :36; Start 11/11/19 at 23:30; Stop 11/11/19 at 23:31; Status DC Influenza Virus Vaccine Quadrival (Afluria Quad 2019-20 (3yr Up) Syringe) 0.5 ml ONCE ONCE VAX IM Last administered on 11/12/19at 08:10; Start 11/12/19 at 09:00; Stop 11/12/19 at 09:01; Status DC Ondansetron HCl (Zofran) 4 mg PRN Q6HRS PRN IVP NAUSEA/VOMITING; Start 11/12/19 at 09:15 Morphine Sulfate (Morphine Sulfate) 2 mg PRN Q2HR PRN IV PAIN; Start 11/12/19 at 09:15 Acetaminophen (Tylenol) 500 mg PRN Q6HRS PRN PO MILD PAIN / TEMP; Start 11/12/19 at 09:15 Acetaminophen/ Codeine Phosphate (Tylenol #3) 1 tab PRN Q6HRS PRN PO PAIN; Start 11/12/19 at 09:15 Labetalol HCl (Normodyne Iv Push) 10 mg PRN Q2HR PRN IVP HYPERTENSION Last administered on 11/12/19at 12:30; Start 11/12/19 at 09:15 Calcium Carbonate/ Glycine (Tums) 500 mg PRN AFTMEALHC PRN PO INDIGESTION; Start 11/12/19 at 09:15 Furosemide (Lasix) 40 mg 1X ONCE IVP Last administered on 11/12/19at 09:36; Start 11/12/19 at 09:15; Stop 11/12/19 at 09:16; Status DC Nicotine (Nicoderm Cq 21mg) 1 patch PRN DAILY PRN TD SMOKING CESSATION; Start 11/12/19 at 11:00 Furosemide (Lasix) 40 mg 1X ONCE IVP ; Start 11/12/19 at 15:00; Stop 11/12/19 at 15:07; Status DC Furosemide (Lasix) 40 mg BID92 PO ; Start 11/13/19 at 09:00 Amlodipine Besylate (Norvasc) 5 mg DAILY PO ; Start 11/13/19 at 09:00 Amlodipine Besylate (Norvasc) 5 mg 1X ONCE PO ; Start 11/12/19 at 15:00; Stop 11/12/19 at 15:07; Status DC Allergies Allergies: Coded Allergies: No Known Drug Allergies (Unverified , 11/11/19) Physical Exam General: Alert, Oriented X3, Other (mild agitation) HEENT: Atraumatic Lungs: Clear to auscultation Heart: Regular rate, Normal S1, Normal S2 Abdomen: Normal bowel sounds, Soft, No tenderness, No hepatosplenomegaly, Other (mild distention) Extremities: No clubbing, No cyanosis (previous edema has resolved) Skin: No rashes Neuro: Normal gait Psych/Mental Status: Mental status NL Vitals VITALS Vital Signs Date Time Temp Pulse Resp B/P (MAP) Pulse Ox O2 Delivery O2 Flow Rate FiO2 11/12/19 12:30 100 184/101 11/12/19 11:00 96.2 20 97 Room Air 96.2 Labs Labs Laboratory Tests Test 11/11/19 20:20 11/11/19 20:43 11/12/19 00:12 11/12/19 05:00 Urine Collection Type Void Urine Color Yellow Urine Clarity Clear Urine pH 5.5 Urine Specific [place] 1.015 Urine Protein 100 mg/dL (NEG-TRACE) Urine Glucose (UA) Negative mg/dL (NEG) Urine Ketones (Stick) Negative mg/dL (NEG) Urine Blood Negative (NEG) Urine Nitrite Negative (NEG) Urine Bilirubin Negative (NEG) Urine Urobilinogen Dipstick 1.0 mg/dL (0.2 mg/dL) Urine Leukocyte Esterase Small (NEG) Urine RBC 1-2 /HPF (0-2) Urine WBC 5-10 /HPF (0-4) Urine Squamous Epithelial Cells Mod /LPF Urine Bacteria Few /HPF (0-FEW) Urine Hyaline Casts Occasional /HPF Urine Opiates Screen Neg (NEG) Urine Methadone Screen Neg (NEG) Urine Barbiturates Neg (NEG) Urine Phencyclidine Screen Neg (NEG) Urine Amphetamine/Methamphetamine Pos (NEG) Urine Benzodiazepines Screen Neg (NEG) Urine Cocaine Screen Neg (NEG) Urine Cannabinoids Screen Pos (NEG) Urine Ethyl Alcohol Neg (NEG) White Blood Count 7.7 x10^3/uL (4.0-11.0) 6.8 x10^3/uL (4.0-11.0) Red Blood Count 4.26 x10^6/uL (3.50-5.40) 4.20 x10^6/uL (3.50-5.40) Hemoglobin 12.1 g/dL (12.0-15.5) 12.1 g/dL (12.0-15.5) Hematocrit 37.1 % (36.0-47.0) 37.2 % (36.0-47.0) Mean Corpuscular Volume 87 fL (79-100) 89 fL (79-100) Mean Corpuscular Hemoglobin 28 pg (25-35) 29 pg (25-35) Mean Corpuscular Hemoglobin Concent 33 g/dL (31-37) 33 g/dL (31-37) Red Cell Distribution Width 14.8 % (11.5-14.5) 15.1 % (11.5-14.5) Platelet Count 213 x10^3/uL (140-400) 199 x10^3/uL (140-400) Neutrophils (%) (Auto) 78 % (31-73) 70 % (31-73) Lymphocytes (%) (Auto) 12 % (24-48) 16 % (24-48) Monocytes (%) (Auto) 7 % (0-9) 10 % (0-9) Eosinophils (%) (Auto) 2 % (0-3) 3 % (0-3) Basophils (%) (Auto) 1 % (0-3) 1 % (0-3) Neutrophils # (Auto) 6.0 x10^3/uL (1.8-7.7) 4.7 x10^3/uL (1.8-7.7) Lymphocytes # (Auto) 0.9 x10^3/uL (1.0-4.8) 1.1 x10^3/uL (1.0-4.8) Monocytes # (Auto) 0.6 x10^3/uL (0.0-1.1) 0.7 x10^3/uL (0.0-1.1) Eosinophils # (Auto) 0.2 x10^3/uL (0.0-0.7) 0.2 x10^3/uL (0.0-0.7) Basophils # (Auto) 0.1 x10^3/uL (0.0-0.2) 0.1 x10^3/uL (0.0-0.2) Prothrombin Time 14.8 SEC (11.7-14.0) Prothromb Time International Ratio 1.2 (0.8-1.1) Sodium Level 138 mmol/L (136-145) 140 mmol/L (136-145) Potassium Level 4.0 mmol/L (3.5-5.1) 3.9 mmol/L (3.5-5.1) Chloride Level 102 mmol/L (98-107) 102 mmol/L (98-107) Carbon Dioxide Level 29 mmol/L (21-32) 27 mmol/L (21-32) Anion Gap 7 (6-14) 11 (6-14) Blood Urea Nitrogen 51 mg/dL (7-20) 49 mg/dL (7-20) Creatinine 2.1 mg/dL (0.6-1.0) 1.9 mg/dL (0.6-1.0) Estimated GFR (Cockcroft-Gault) 24.4 27.3 BUN/Creatinine Ratio 24 (6-20) 26 (6-20) Glucose Level 121 mg/dL (70-99) 89 mg/dL (70-99) Calcium Level 8.7 mg/dL (8.5-10.1) 8.9 mg/dL (8.5-10.1) Magnesium Level 1.6 mg/dL (1.8-2.4) Total Bilirubin 0.5 mg/dL (0.2-1.0) 0.5 mg/dL (0.2-1.0) Aspartate Amino Transf (AST/SGOT) 32 U/L (15-37) 34 U/L (15-37) Alanine Aminotransferase (ALT/SGPT) 30 U/L (14-59) 27 U/L (14-59) Alkaline Phosphatase 130 U/L (46-116) 123 U/L (46-116) Creatine Kinase 270 U/L (26-192) Creatine Kinase MB (Mass) 14.9 ng/mL (0.0-3.6) Creatine Kinase MB Relative Index 5.5 % (0-4) Troponin I Quantitative 0.087 ng/mL (0.000-0.055) 0.111 ng/mL (0.000-0.055) 0.090 ng/mL (0.000-0.055) [id number]-Type Natriuretic Peptide 66087 pg/mL (0-124) Total Protein 7.3 g/dL (6.4-8.2) 7.1 g/dL (6.4-8.2) Albumin 3.4 g/dL (3.4-5.0) 3.3 g/dL (3.4-5.0) Albumin/Globulin Ratio 0.9 (1.0-1.7) 0.9 (1.0-1.7) Lipase 105 U/L (73-393) Thyroid Stimulating Hormone (TSH) 2.403 uIU/mL (0.358-3.74) Ethyl Alcohol Level < 10 mg/dL (0-10) Laboratory Tests Test 11/11/19 20:20 11/11/19 20:43 11/12/19 00:12 11/12/19 05:00 Urine Collection Type Void Urine Color Yellow Urine Clarity Clear Urine pH 5.5 Urine Specific [place] 1.015 Urine Protein 100 mg/dL (NEG-TRACE) Urine Glucose (UA) Negative mg/dL (NEG) Urine Ketones (Stick) Negative mg/dL (NEG) Urine Blood Negative (NEG) Urine Nitrite Negative (NEG) Urine Bilirubin Negative (NEG) Urine Urobilinogen Dipstick 1.0 mg/dL (0.2 mg/dL) Urine Leukocyte Esterase Small (NEG) Urine RBC 1-2 /HPF (0-2) Urine WBC 5-10 /HPF (0-4) Urine Squamous Epithelial Cells Mod /LPF Urine Bacteria Few /HPF (0-FEW) Urine Hyaline Casts Occasional /HPF Urine Opiates Screen Neg (NEG) Urine Methadone Screen Neg (NEG) Urine Barbiturates Neg (NEG) Urine Phencyclidine Screen Neg (NEG) Urine Amphetamine/Methamphetamine Pos (NEG) Urine Benzodiazepines Screen Neg (NEG) Urine Cocaine Screen Neg (NEG) Urine Cannabinoids Screen Pos (NEG) Urine Ethyl Alcohol Neg (NEG) White Blood Count 7.7 x10^3/uL (4.0-11.0) 6.8 x10^3/uL (4.0-11.0) Red Blood Count 4.26 x10^6/uL (3.50-5.40) 4.20 x10^6/uL (3.50-5.40) Hemoglobin 12.1 g/dL (12.0-15.5) 12.1 g/dL (12.0-15.5) Hematocrit 37.1 % (36.0-47.0) 37.2 % (36.0-47.0) Mean Corpuscular Volume 87 fL (79-100) 89 fL (79-100) Mean Corpuscular Hemoglobin 28 pg (25-35) 29 pg (25-35) Mean Corpuscular Hemoglobin Concent 33 g/dL (31-37) 33 g/dL (31-37) Red Cell Distribution Width 14.8 % (11.5-14.5) 15.1 % (11.5-14.5) Platelet Count 213 x10^3/uL (140-400) 199 x10^3/uL (140-400) Neutrophils (%) (Auto) 78 % (31-73) 70 % (31-73) Lymphocytes (%) (Auto) 12 % (24-48) 16 % (24-48) Monocytes (%) (Auto) 7 % (0-9) 10 % (0-9) Eosinophils (%) (Auto) 2 % (0-3) 3 % (0-3) Basophils (%) (Auto) 1 % (0-3) 1 % (0-3) Neutrophils # (Auto) 6.0 x10^3/uL (1.8-7.7) 4.7 x10^3/uL (1.8-7.7) Lymphocytes # (Auto) 0.9 x10^3/uL (1.0-4.8) 1.1 x10^3/uL (1.0-4.8) Monocytes # (Auto) 0.6 x10^3/uL (0.0-1.1) 0.7 x10^3/uL (0.0-1.1) Eosinophils # (Auto) 0.2 x10^3/uL (0.0-0.7) 0.2 x10^3/uL (0.0-0.7) Basophils # (Auto) 0.1 x10^3/uL (0.0-0.2) 0.1 x10^3/uL (0.0-0.2) Prothrombin Time 14.8 SEC (11.7-14.0) Prothromb Time International Ratio 1.2 (0.8-1.1) Sodium Level 138 mmol/L (136-145) 140 mmol/L (136-145) Potassium Level 4.0 mmol/L (3.5-5.1) 3.9 mmol/L (3.5-5.1) Chloride Level 102 mmol/L (98-107) 102 mmol/L (98-107) Carbon Dioxide Level 29 mmol/L (21-32) 27 mmol/L (21-32) Anion Gap 7 (6-14) 11 (6-14) Blood Urea Nitrogen 51 mg/dL (7-20) 49 mg/dL (7-20) Creatinine 2.1 mg/dL (0.6-1.0) 1.9 mg/dL (0.6-1.0) Estimated GFR (Cockcroft-Gault) 24.4 27.3 BUN/Creatinine Ratio 24 (6-20) 26 (6-20) Glucose Level 121 mg/dL (70-99) 89 mg/dL (70-99) Calcium Level 8.7 mg/dL (8.5-10.1) 8.9 mg/dL (8.5-10.1) Magnesium Level 1.6 mg/dL (1.8-2.4) Total Bilirubin 0.5 mg/dL (0.2-1.0) 0.5 mg/dL (0.2-1.0) Aspartate Amino Transf (AST/SGOT) 32 U/L (15-37) 34 U/L (15-37) Alanine Aminotransferase (ALT/SGPT) 30 U/L (14-59) 27 U/L (14-59) Alkaline Phosphatase 130 U/L (46-116) 123 U/L (46-116) Creatine Kinase 270 U/L (26-192) Creatine Kinase MB (Mass) 14.9 ng/mL (0.0-3.6) Creatine Kinase MB Relative Index 5.5 % (0-4) Troponin I Quantitative 0.087 ng/mL (0.000-0.055) 0.111 ng/mL (0.000-0.055) 0.090 ng/mL (0.000-0.055) [id number]-Type Natriuretic Peptide 45539 pg/mL (0-124) Total Protein 7.3 g/dL (6.4-8.2) 7.1 g/dL (6.4-8.2) Albumin 3.4 g/dL (3.4-5.0) 3.3 g/dL (3.4-5.0) Albumin/Globulin Ratio 0.9 (1.0-1.7) 0.9 (1.0-1.7) Lipase 105 U/L (73-393) Thyroid Stimulating Hormone (TSH) 2.403 uIU/mL (0.358-3.74) Ethyl Alcohol Level < 10 mg/dL (0-10) Images Images CT showing small pericardial effusion, some ascites in the upper abdomen around the liver, and enlarged liver without obvious focal lesions. Assessment/Plan Assessment/Plan History of fluid overload with peripheral edema and abdominal swelling associated with shortness of breath. This appears to be multifactorial, in part from her poorly treated hypertension and may represent underlying congestive heart failure. She she has a history of hepatitis C and probably has some underlying liver disease but claims that her hepatitis C has been treated. Possibility of subclinical cirrhosis cannot be excluded. There is a vague history of alcohol use in the past and some recent substance use history. Plan: Continue with diuretics and appropriate treatment of her hypertension We'll monitor her response but no further GI intervention is recommended. In particular no reason for acute paracentesis at this point unless her ascites or abdominal distention persist or she develops new symptoms. Total alcohol and substance use abstinence is recommended ESME HUMPHREY MD Nov 12, 2019 15:25
--- NOTE | 2019-11-12 16:15 | PDOC2 ---
CONSULT Date of Consult Date of Consult DATE: 11/12/19 TIME: 16:09 Reason for Consult Reason for Consult: Heart failure Referring Physician Referring Physician: Dr. Atwood Identification/Chief Complaint Chief Complaint Abdominal pain and fluid retention Source Source: Chart review, Patient History of Present Illness Reason for Visit: The patient is a 54-year-old female who was admitted through the emergency room with several weeks of increasing fluid retention in her abdomen and abdominal discomfort. She reportedly was seen at [facility] in the not too distant past for similar episodes. She states she takes no home medications secondary to the inability to afford them. She has a history of ascites, hypertension, renal failure and possible coronary artery disease. She denies chest pain. CT scan shows a small pericardial effusion with positive ascites. Chest x-ray shows mild congestive heart failure. Peak troponin is 0.111. Creatinine is 1.9. Past Medical History Cardiovascular: CHF, HTN GI: Other (psych he) Hepatobiliary: Hep A/B/C (C previously treated) Renal/: Chronic renal insuff Past Surgical History Past Surgical History: Other (unknown), No pertinent history Family History Family History: Family History Unknown Social History <1 pack per day ALCOHOL: other (possible heavy use in the past) Drugs: None Lives: with Family Current Problem List Problem List Problems Medical Problems: (1) Acute on chronic renal failure Status: Acute (2) Ascites Status: Acute Current Medications Current Medications Current Medications Fentanyl Citrate (Fentanyl 2ml Vial) 50 mcg PRN Q15MIN PRN IV PAIN GREATER THAN 3/10 Last administered on 11/11/19at 22:06; Start 11/11/19 at 20:45; Stop 11/12/19 at 20:44 Ondansetron HCl (Zofran) 4 mg PRN Q8HRS PRN IV NAUSEA/VOMITING 1ST CHOICE; Start 11/11/19 at 23:00; Stop 11/12/19 at 22:59 Morphine Sulfate (Morphine Sulfate) 4 mg PRN Q2HR PRN IV SEVERE PAIN 7-10; Start 11/11/19 at 23:00; Stop 11/12/19 at 22:59 Diphenhydramine HCl (Benadryl) 25 mg PRN Q6HRS PRN IVP ITCHING Last administered on 11/12/19at 08:10; Start 11/11/19 at 23:00 Aspirin (Nelly Aspirin) 325 mg 1X ONCE PO Last administered on 11/11/19at 23:36; Start 11/11/19 at 23:30; Stop 11/11/19 at 23:31; Status DC Influenza Virus Vaccine Quadrival (Afluria Quad 2019-20 (3yr Up) Syringe) 0.5 ml ONCE ONCE VAX IM Last administered on 11/12/19at 08:10; Start 11/12/19 at 09:00; Stop 11/12/19 at 09:01; Status DC Ondansetron HCl (Zofran) 4 mg PRN Q6HRS PRN IVP NAUSEA/VOMITING; Start 11/12/19 at 09:15 Morphine Sulfate (Morphine Sulfate) 2 mg PRN Q2HR PRN IV PAIN; Start 11/12/19 at 09:15 Acetaminophen (Tylenol) 500 mg PRN Q6HRS PRN PO MILD PAIN / TEMP; Start 11/12/19 at 09:15 Acetaminophen/ Codeine Phosphate (Tylenol #3) 1 tab PRN Q6HRS PRN PO PAIN; Start 11/12/19 at 09:15 Labetalol HCl (Normodyne Iv Push) 10 mg PRN Q2HR PRN IVP HYPERTENSION Last administered on 11/12/19at 12:30; Start 11/12/19 at 09:15 Calcium Carbonate/ Glycine (Tums) 500 mg PRN AFTMEALHC PRN PO INDIGESTION; Start 11/12/19 at 09:15 Furosemide (Lasix) 40 mg 1X ONCE IVP Last administered on 11/12/19at 09:36; Start 11/12/19 at 09:15; Stop 11/12/19 at 09:16; Status DC Nicotine (Nicoderm Cq 21mg) 1 patch PRN DAILY PRN TD SMOKING CESSATION; Start 11/12/19 at 11:00 Furosemide (Lasix) 40 mg 1X ONCE IVP Last administered on 11/12/19at 15:37; Start 11/12/19 at 15:00; Stop 11/12/19 at 15:07; Status DC Furosemide (Lasix) 40 mg BID92 PO ; Start 11/13/19 at 09:00 Amlodipine Besylate (Norvasc) 5 mg DAILY PO ; Start 11/13/19 at 09:00 Amlodipine Besylate (Norvasc) 5 mg 1X ONCE PO Last administered on 11/12/19at 15:36; Start 11/12/19 at 15:00; Stop 11/12/19 at 15:07; Status DC Allergies Allergies: Coded Allergies: No Known Drug Allergies (Unverified , 11/11/19) ROS General: YES: Fatigue Respiratory: YES: SOB with excertion Physical Exam HEENT: Atraumatic Lungs: Other (mildly decreased breath sounds) Heart: Regular rate Abdomen: Other (ascites) Vitals VITALS Vital Signs Date Time Temp Pulse Resp B/P (MAP) Pulse Ox O2 Delivery O2 Flow Rate FiO2 11/12/19 15:36 92 184/101 11/12/19 11:00 96.2 20 97 Room Air 96.2 Labs Labs Laboratory Tests Test 11/11/19 20:20 11/11/19 20:43 11/12/19 00:12 11/12/19 05:00 Urine Collection Type Void Urine Color Yellow Urine Clarity Clear Urine pH 5.5 Urine Specific [place] 1.015 Urine Protein 100 mg/dL (NEG-TRACE) Urine Glucose (UA) Negative mg/dL (NEG) Urine Ketones (Stick) Negative mg/dL (NEG) Urine Blood Negative (NEG) Urine Nitrite Negative (NEG) Urine Bilirubin Negative (NEG) Urine Urobilinogen Dipstick 1.0 mg/dL (0.2 mg/dL) Urine Leukocyte Esterase Small (NEG) Urine RBC 1-2 /HPF (0-2) Urine WBC 5-10 /HPF (0-4) Urine Squamous Epithelial Cells Mod /LPF Urine Bacteria Few /HPF (0-FEW) Urine Hyaline Casts Occasional /HPF Urine Opiates Screen Neg (NEG) Urine Methadone Screen Neg (NEG) Urine Barbiturates Neg (NEG) Urine Phencyclidine Screen Neg (NEG) Urine Amphetamine/Methamphetamine Pos (NEG) Urine Benzodiazepines Screen Neg (NEG) Urine Cocaine Screen Neg (NEG) Urine Cannabinoids Screen Pos (NEG) Urine Ethyl Alcohol Neg (NEG) White Blood Count 7.7 x10^3/uL (4.0-11.0) 6.8 x10^3/uL (4.0-11.0) Red Blood Count 4.26 x10^6/uL (3.50-5.40) 4.20 x10^6/uL (3.50-5.40) Hemoglobin 12.1 g/dL (12.0-15.5) 12.1 g/dL (12.0-15.5) Hematocrit 37.1 % (36.0-47.0) 37.2 % (36.0-47.0) Mean Corpuscular Volume 87 fL (79-100) 89 fL (79-100) Mean Corpuscular Hemoglobin 28 pg (25-35) 29 pg (25-35) Mean Corpuscular Hemoglobin Concent 33 g/dL (31-37) 33 g/dL (31-37) Red Cell Distribution Width 14.8 % (11.5-14.5) 15.1 % (11.5-14.5) Platelet Count 213 x10^3/uL (140-400) 199 x10^3/uL (140-400) Neutrophils (%) (Auto) 78 % (31-73) 70 % (31-73) Lymphocytes (%) (Auto) 12 % (24-48) 16 % (24-48) Monocytes (%) (Auto) 7 % (0-9) 10 % (0-9) Eosinophils (%) (Auto) 2 % (0-3) 3 % (0-3) Basophils (%) (Auto) 1 % (0-3) 1 % (0-3) Neutrophils # (Auto) 6.0 x10^3/uL (1.8-7.7) 4.7 x10^3/uL (1.8-7.7) Lymphocytes # (Auto) 0.9 x10^3/uL (1.0-4.8) 1.1 x10^3/uL (1.0-4.8) Monocytes # (Auto) 0.6 x10^3/uL (0.0-1.1) 0.7 x10^3/uL (0.0-1.1) Eosinophils # (Auto) 0.2 x10^3/uL (0.0-0.7) 0.2 x10^3/uL (0.0-0.7) Basophils # (Auto) 0.1 x10^3/uL (0.0-0.2) 0.1 x10^3/uL (0.0-0.2) Prothrombin Time 14.8 SEC (11.7-14.0) Prothromb Time International Ratio 1.2 (0.8-1.1) Sodium Level 138 mmol/L (136-145) 140 mmol/L (136-145) Potassium Level 4.0 mmol/L (3.5-5.1) 3.9 mmol/L (3.5-5.1) Chloride Level 102 mmol/L (98-107) 102 mmol/L (98-107) Carbon Dioxide Level 29 mmol/L (21-32) 27 mmol/L (21-32) Anion Gap 7 (6-14) 11 (6-14) Blood Urea Nitrogen 51 mg/dL (7-20) 49 mg/dL (7-20) Creatinine 2.1 mg/dL (0.6-1.0) 1.9 mg/dL (0.6-1.0) Estimated GFR (Cockcroft-Gault) 24.4 27.3 BUN/Creatinine Ratio 24 (6-20) 26 (6-20) Glucose Level 121 mg/dL (70-99) 89 mg/dL (70-99) Calcium Level 8.7 mg/dL (8.5-10.1) 8.9 mg/dL (8.5-10.1) Magnesium Level 1.6 mg/dL (1.8-2.4) Total Bilirubin 0.5 mg/dL (0.2-1.0) 0.5 mg/dL (0.2-1.0) Aspartate Amino Transf (AST/SGOT) 32 U/L (15-37) 34 U/L (15-37) Alanine Aminotransferase (ALT/SGPT) 30 U/L (14-59) 27 U/L (14-59) Alkaline Phosphatase 130 U/L (46-116) 123 U/L (46-116) Creatine Kinase 270 U/L (26-192) Creatine Kinase MB (Mass) 14.9 ng/mL (0.0-3.6) Creatine Kinase MB Relative Index 5.5 % (0-4) Troponin I Quantitative 0.087 ng/mL (0.000-0.055) 0.111 ng/mL (0.000-0.055) 0.090 ng/mL (0.000-0.055) DY-Adp-I-Type Natriuretic Peptide 32410 pg/mL (0-124) Total Protein 7.3 g/dL (6.4-8.2) 7.1 g/dL (6.4-8.2) Albumin 3.4 g/dL (3.4-5.0) 3.3 g/dL (3.4-5.0) Albumin/Globulin Ratio 0.9 (1.0-1.7) 0.9 (1.0-1.7) Lipase 105 U/L (73-393) Thyroid Stimulating Hormone (TSH) 2.403 uIU/mL (0.358-3.74) Ethyl Alcohol Level < 10 mg/dL (0-10) Laboratory Tests Test 11/11/19 20:20 11/11/19 20:43 11/12/19 00:12 11/12/19 05:00 Urine Collection Type Void Urine Color Yellow Urine Clarity Clear Urine pH 5.5 Urine Specific [place] 1.015 Urine Protein 100 mg/dL (NEG-TRACE) Urine Glucose (UA) Negative mg/dL (NEG) Urine Ketones (Stick) Negative mg/dL (NEG) Urine Blood Negative (NEG) Urine Nitrite Negative (NEG) Urine Bilirubin Negative (NEG) Urine Urobilinogen Dipstick 1.0 mg/dL (0.2 mg/dL) Urine Leukocyte Esterase Small (NEG) Urine RBC 1-2 /HPF (0-2) Urine WBC 5-10 /HPF (0-4) Urine Squamous Epithelial Cells Mod /LPF Urine Bacteria Few /HPF (0-FEW) Urine Hyaline Casts Occasional /HPF Urine Opiates Screen Neg (NEG) Urine Methadone Screen Neg (NEG) Urine Barbiturates Neg (NEG) Urine Phencyclidine Screen Neg (NEG) Urine Amphetamine/Methamphetamine Pos (NEG) Urine Benzodiazepines Screen Neg (NEG) Urine Cocaine Screen Neg (NEG) Urine Cannabinoids Screen Pos (NEG) Urine Ethyl Alcohol Neg (NEG) White Blood Count 7.7 x10^3/uL (4.0-11.0) 6.8 x10^3/uL (4.0-11.0) Red Blood Count 4.26 x10^6/uL (3.50-5.40) 4.20 x10^6/uL (3.50-5.40) Hemoglobin 12.1 g/dL (12.0-15.5) 12.1 g/dL (12.0-15.5) Hematocrit 37.1 % (36.0-47.0) 37.2 % (36.0-47.0) Mean Corpuscular Volume 87 fL (79-100) 89 fL (79-100) Mean Corpuscular Hemoglobin 28 pg (25-35) 29 pg (25-35) Mean Corpuscular Hemoglobin Concent 33 g/dL (31-37) 33 g/dL (31-37) Red Cell Distribution Width 14.8 % (11.5-14.5) 15.1 % (11.5-14.5) Platelet Count 213 x10^3/uL (140-400) 199 x10^3/uL (140-400) Neutrophils (%) (Auto) 78 % (31-73) 70 % (31-73) Lymphocytes (%) (Auto) 12 % (24-48) 16 % (24-48) Monocytes (%) (Auto) 7 % (0-9) 10 % (0-9) Eosinophils (%) (Auto) 2 % (0-3) 3 % (0-3) Basophils (%) (Auto) 1 % (0-3) 1 % (0-3) Neutrophils # (Auto) 6.0 x10^3/uL (1.8-7.7) 4.7 x10^3/uL (1.8-7.7) Lymphocytes # (Auto) 0.9 x10^3/uL (1.0-4.8) 1.1 x10^3/uL (1.0-4.8) Monocytes # (Auto) 0.6 x10^3/uL (0.0-1.1) 0.7 x10^3/uL (0.0-1.1) Eosinophils # (Auto) 0.2 x10^3/uL (0.0-0.7) 0.2 x10^3/uL (0.0-0.7) Basophils # (Auto) 0.1 x10^3/uL (0.0-0.2) 0.1 x10^3/uL (0.0-0.2) Prothrombin Time 14.8 SEC (11.7-14.0) Prothromb Time International Ratio 1.2 (0.8-1.1) Sodium Level 138 mmol/L (136-145) 140 mmol/L (136-145) Potassium Level 4.0 mmol/L (3.5-5.1) 3.9 mmol/L (3.5-5.1) Chloride Level 102 mmol/L (98-107) 102 mmol/L (98-107) Carbon Dioxide Level 29 mmol/L (21-32) 27 mmol/L (21-32) Anion Gap 7 (6-14) 11 (6-14) Blood Urea Nitrogen 51 mg/dL (7-20) 49 mg/dL (7-20) Creatinine 2.1 mg/dL (0.6-1.0) 1.9 mg/dL (0.6-1.0) Estimated GFR (Cockcroft-Gault) 24.4 27.3 BUN/Creatinine Ratio 24 (6-20) 26 (6-20) Glucose Level 121 mg/dL (70-99) 89 mg/dL (70-99) Calcium Level 8.7 mg/dL (8.5-10.1) 8.9 mg/dL (8.5-10.1) Magnesium Level 1.6 mg/dL (1.8-2.4) Total Bilirubin 0.5 mg/dL (0.2-1.0) 0.5 mg/dL (0.2-1.0) Aspartate Amino Transf (AST/SGOT) 32 U/L (15-37) 34 U/L (15-37) Alanine Aminotransferase (ALT/SGPT) 30 U/L (14-59) 27 U/L (14-59) Alkaline Phosphatase 130 U/L (46-116) 123 U/L (46-116) Creatine Kinase 270 U/L (26-192) Creatine Kinase MB (Mass) 14.9 ng/mL (0.0-3.6) Creatine Kinase MB Relative Index 5.5 % (0-4) Troponin I Quantitative 0.087 ng/mL (0.000-0.055) 0.111 ng/mL (0.000-0.055) 0.090 ng/mL (0.000-0.055) YA-Jkw-A-Type Natriuretic Peptide 50160 pg/mL (0-124) Total Protein 7.3 g/dL (6.4-8.2) 7.1 g/dL (6.4-8.2) Albumin 3.4 g/dL (3.4-5.0) 3.3 g/dL (3.4-5.0) Albumin/Globulin Ratio 0.9 (1.0-1.7) 0.9 (1.0-1.7) Lipase 105 U/L (73-393) Thyroid Stimulating Hormone (TSH) 2.403 uIU/mL (0.358-3.74) Ethyl Alcohol Level < 10 mg/dL (0-10) Images Images Chest x-ray with mild heart failure. Assessment/Plan Assessment/Plan 1. Heart failure. We will treat with mild diuresis with monitoring the patient's lab since her creatinine is 1.9. We'll check an echocardiogram for LV function. We'll attempt to obtain past records from [facility]. Minimal elevation of troponin at 0.111. Now trending down. Consistent with demand ischemia. 2. Abdominal pain with ascites. We'll continue diuresis as above. GI consult has been requested. 3. Apparent chronic renal insufficiency. Creatinine 1.9. Mild diuresis as above. Renal is following the patient. 4. Hypertension. We'll monitor and adjust medications as needed. 5. Medical noncompliance. As above. Thank you for allowing us to participate in the care of your patient. KARLO VAUGHN MD Nov 12, 2019 16:15
[2019-11-13 03:35] VITALS: BP 156/80
[2019-11-13 05:49] LABS: CALCIUM 9.3 mg/dL (8.5-10.1); CREATININE 1.7 mg/dL (0.6-1.0); GFR 31.1; MAGNESIUM 1.7 mg/dL (1.8-2.4); POTASSIUM 3.5 mmol/L (3.5-5.1)
--- NOTE | 2019-11-13 06:08 | EKG ---
[facility] [address] [place] [address] Test Date: 2019-11-11 Test Time: 20:54:15 Pat Name: ASHA AREVALO Department: Room: Gender: F Director Of Golf: : 1965 Requested By: ENA ESCOBEDO Order Number: [id number] Reading MD: Measurements Intervals [place] Rate: 90 P: 36 CO: 136 QRS: -11 QRSD: 80 T: 64 QT: 368 QTc: 454 Interpretive Statements SINUS RHYTHM LEFTWARD AXIS NON SPECIFIC T ABNORMALITY BORDERLINE ECG No previous ECG available for comparison
[2019-11-13 07:00] VITALS: BP 166/103
[2019-11-13] MEDS: FUROSEMIDE 40 MG TABLET. PO SCH ×2 (08:02→14:43)
[2019-11-13] MEDS ORDERED: amLODIPine BESYLATE 5 MG TABLET PO SCH (09:00)
[2019-11-13] MEDS ORDERED: amLODIPine BESYLATE 10 MG TABLET PO SCH (09:00)
[2019-11-13] MEDS ORDERED: FURO40TA4 PO (10:18)
[2019-11-13] MEDS ORDERED: AMLO10TA8 PO (10:18)
--- NOTE | 2019-11-13 10:23 | PDOC3 ---
Discharge Summary Visit Information Date of Admission: Nov 11, 2019 Date of Discharge: Nov 13, 2019 Admitting Diagnosis Comment: anasarca Accel HTN Non compliance to BP meds denies etoh use Final Diagnosis Problems Medical Problems: (1) Acute on chronic renal failure Status: Acute (2) Ascites Status: Acute Brief Hospital Course Allergies Allergies Coded Allergies Type Severity Reaction Last Updated Verified No Known Drug Allergies 11/11/19 No Vital Signs Vital Signs Date Time Temp Pulse Resp B/P (MAP) Pulse Ox O2 Delivery O2 Flow Rate FiO2 11/13/19 08:04 100 166/103 11/13/19 08:00 Room Air 11/13/19 07:00 97.6 18 93 97.6 Lab Results Laboratory Tests Test 11/11/19 20:20 11/11/19 20:43 11/12/19 00:12 11/12/19 05:00 Urine Collection Type Void Urine Color Yellow Urine Clarity Clear Urine pH 5.5 Urine Specific [place] 1.015 Urine Protein 100 mg/dL (NEG-TRACE) Urine Glucose (UA) Negative mg/dL (NEG) Urine Ketones (Stick) Negative mg/dL (NEG) Urine Blood Negative (NEG) Urine Nitrite Negative (NEG) Urine Bilirubin Negative (NEG) Urine Urobilinogen Dipstick 1.0 mg/dL (0.2 mg/dL) Urine Leukocyte Esterase Small (NEG) Urine RBC 1-2 /HPF (0-2) Urine WBC 5-10 /HPF (0-4) Urine Squamous Epithelial Cells Mod /LPF Urine Bacteria Few /HPF (0-FEW) Urine Hyaline Casts Occasional /HPF Urine Opiates Screen Neg (NEG) Urine Methadone Screen Neg (NEG) Urine Barbiturates Neg (NEG) Urine Phencyclidine Screen Neg (NEG) Urine Amphetamine/Methamphetamine Pos (NEG) Urine Benzodiazepines Screen Neg (NEG) Urine Cocaine Screen Neg (NEG) Urine Cannabinoids Screen Pos (NEG) Urine Ethyl Alcohol Neg (NEG) White Blood Count 7.7 x10^3/uL (4.0-11.0) 6.8 x10^3/uL (4.0-11.0) Red Blood Count 4.26 x10^6/uL (3.50-5.40) 4.20 x10^6/uL (3.50-5.40) Hemoglobin 12.1 g/dL (12.0-15.5) 12.1 g/dL (12.0-15.5) Hematocrit 37.1 % (36.0-47.0) 37.2 % (36.0-47.0) Mean Corpuscular Volume 87 fL (79-100) 89 fL (79-100) Mean Corpuscular Hemoglobin 28 pg (25-35) 29 pg (25-35) Mean Corpuscular Hemoglobin Concent 33 g/dL (31-37) 33 g/dL (31-37) Red Cell Distribution Width 14.8 % (11.5-14.5) 15.1 % (11.5-14.5) Platelet Count 213 x10^3/uL (140-400) 199 x10^3/uL (140-400) Neutrophils (%) (Auto) 78 % (31-73) 70 % (31-73) Lymphocytes (%) (Auto) 12 % (24-48) 16 % (24-48) Monocytes (%) (Auto) 7 % (0-9) 10 % (0-9) Eosinophils (%) (Auto) 2 % (0-3) 3 % (0-3) Basophils (%) (Auto) 1 % (0-3) 1 % (0-3) Neutrophils # (Auto) 6.0 x10^3/uL (1.8-7.7) 4.7 x10^3/uL (1.8-7.7) Lymphocytes # (Auto) 0.9 x10^3/uL (1.0-4.8) 1.1 x10^3/uL (1.0-4.8) Monocytes # (Auto) 0.6 x10^3/uL (0.0-1.1) 0.7 x10^3/uL (0.0-1.1) Eosinophils # (Auto) 0.2 x10^3/uL (0.0-0.7) 0.2 x10^3/uL (0.0-0.7) Basophils # (Auto) 0.1 x10^3/uL (0.0-0.2) 0.1 x10^3/uL (0.0-0.2) Prothrombin Time 14.8 SEC (11.7-14.0) Prothromb Time International Ratio 1.2 (0.8-1.1) Sodium Level 138 mmol/L (136-145) 140 mmol/L (136-145) Potassium Level 4.0 mmol/L (3.5-5.1) 3.9 mmol/L (3.5-5.1) Chloride Level 102 mmol/L (98-107) 102 mmol/L (98-107) Carbon Dioxide Level 29 mmol/L (21-32) 27 mmol/L (21-32) Anion Gap 7 (6-14) 11 (6-14) Blood Urea Nitrogen 51 mg/dL (7-20) 49 mg/dL (7-20) Creatinine 2.1 mg/dL (0.6-1.0) 1.9 mg/dL (0.6-1.0) Estimated GFR (Cockcroft-Gault) 24.4 27.3 BUN/Creatinine Ratio 24 (6-20) 26 (6-20) Glucose Level 121 mg/dL (70-99) 89 mg/dL (70-99) Calcium Level 8.7 mg/dL (8.5-10.1) 8.9 mg/dL (8.5-10.1) Magnesium Level 1.6 mg/dL (1.8-2.4) Total Bilirubin 0.5 mg/dL (0.2-1.0) 0.5 mg/dL (0.2-1.0) Aspartate Amino Transf (AST/SGOT) 32 U/L (15-37) 34 U/L (15-37) Alanine Aminotransferase (ALT/SGPT) 30 U/L (14-59) 27 U/L (14-59) Alkaline Phosphatase 130 U/L (46-116) 123 U/L (46-116) Creatine Kinase 270 U/L (26-192) Creatine Kinase MB (Mass) 14.9 ng/mL (0.0-3.6) Creatine Kinase MB Relative Index 5.5 % (0-4) Troponin I Quantitative 0.087 ng/mL (0.000-0.055) 0.111 ng/mL (0.000-0.055) 0.090 ng/mL (0.000-0.055) RV-Ied-D-Type Natriuretic Peptide 57039 pg/mL (0-124) Total Protein 7.3 g/dL (6.4-8.2) 7.1 g/dL (6.4-8.2) Albumin 3.4 g/dL (3.4-5.0) 3.3 g/dL (3.4-5.0) Albumin/Globulin Ratio 0.9 (1.0-1.7) 0.9 (1.0-1.7) Lipase 105 U/L (73-393) Thyroid Stimulating Hormone (TSH) 2.403 uIU/mL (0.358-3.74) Ethyl Alcohol Level < 10 mg/dL (0-10) Test 11/13/19 03:45 Sodium Level 142 mmol/L (136-145) Potassium Level 3.5 mmol/L (3.5-5.1) Chloride Level 99 mmol/L (98-107) Carbon Dioxide Level 34 mmol/L (21-32) Anion Gap 9 (6-14) Blood Urea Nitrogen 41 mg/dL (7-20) Creatinine 1.7 mg/dL (0.6-1.0) Estimated GFR (Cockcroft-Gault) 31.1 Glucose Level 99 mg/dL (70-99) Calcium Level 9.3 mg/dL (8.5-10.1) Magnesium Level 1.7 mg/dL (1.8-2.4) Laboratory Tests Test 11/13/19 03:45 Sodium Level 142 mmol/L (136-145) Potassium Level 3.5 mmol/L (3.5-5.1) Chloride Level 99 mmol/L (98-107) Carbon Dioxide Level 34 mmol/L (21-32) Anion Gap 9 (6-14) Blood Urea Nitrogen 41 mg/dL (7-20) Creatinine 1.7 mg/dL (0.6-1.0) Estimated GFR (Cockcroft-Gault) 31.1 Glucose Level 99 mg/dL (70-99) Calcium Level 9.3 mg/dL (8.5-10.1) Magnesium Level 1.7 mg/dL (1.8-2.4) Brief Hospital Course Ms. De La Paz is a 54 old [sex] whote female, who presented with [ ]anasarca with abd fluid (but not distended and accel HTN, SHe is non complaint with meds, Co managed with GI and cards and no need for paracentesis, I emphasized compliance to lasix 40 BID and norvasc 10, No PT needs Echo ordered, IF cleared by cards,home today on lasix and PO nrorvasc, avoid etoh, Limit fluid intake [address]: Cardiomegaly with a small amount of pericardial effusion. Ascites around the liver, gallbladder, in the left colic gutter and in the pelvis. Contracted gallbladder but no cholelithiasis. Enlarged liver at 20.3 cm without a focal lesion. Diverticulosis without diverticulitis. Anasarca. 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 Discharge Information Condition at Discharge: Improved, Stable Disposition/Orders: D/C to Home Scheduled Amlodipine Besylate (Amlodipine Besylate) 10 Mg Tablet, 10 MG PO DAILY for htn, #60 Prescribed by: NAVID APPIAH on 11/13/19 1018 Furosemide (Furosemide) 40 Mg Tablet, 40 MG PO BID92 for anasarca, #60 Prescribed by: NAVID APPIAH on 11/13/19 1018 NAVID APPIAH MD Nov 13, 2019 10:23
[2019-11-13 11:00] VITALS: BP 164/94
--- NOTE | 2019-11-13 11:59 | CARD ---
MR#: [id number] Date of Study: 11/13/2019 Ordering Physician: KARLO FUENTES, Referring Physician: KARLO FUENTES, Tech: Romana Houser [facility] APPROVED REPORT EXAM: Two-dimensional and M-mode echocardiogram with Doppler and color Doppler. Other Information Quality : Good INDICATION Congestive Heart Failure 2D DIMENSIONS RVDd2.8 (2.9-3.5cm)Left Atrium(2D)3.9 (1.6-4.0cm) IVSd0.9 (0.7-1.1cm)Aortic Root(2D)2.3 (2.0-3.7cm) LVDd5.3 (3.9-5.9cm)LVOT Diameter2.0 (1.8-2.4cm) PWd1.0 (0.7-1.1cm)LVDs4.0 (2.5-4.0cm) FS (%) 24.3 %SV63.6 ml Aortic Valve AoV Peak Feroz.125.6cm/sAoV VTI19.6cm AO Peak GR.6.3mmHgLVOT Peak Feroz.89.2cm/s AO Mean GR.4mmHgAVA (VMAX)2.14cm2 YESI (VTI)2.40cm2 Mitral Valve MV E Rityeqjq086.0cm/sMV DECEL [id number] MV A Aeczjvdx92.3cm/sE/A Ratio1.5 Tricuspid Valve TR P. Qxiojcfq701wi/sRAP YXPDEKUW4ovBp TR Peak Gr.12muXbBDIV63tyFl Pulmonary Vein S1 Cckygixn26.9cm/sD2 Bsznelgk619.6cm/s LEFT VENTRICLE The left ventricle is normal size. There is normal left ventricular wall thickness. The systolic func tion is mildly impaired. The ejection fraction is estimated at 40%. There is mild global hypokinesis of the left ventricle. Transmitral Doppler flow pattern is Grade II-pseudonormal filling dynamics. RIGHT VENTRICLE The right ventricle is normal size. The right ventricular systolic function is normal. ATRIA The left atrium size is normal. The right atrium size is normal. The interatrial septum is intact wit h no evidence for an atrial septal defect or patent foramen ovale as noted on 2-D or Doppler imaging. AORTIC VALVE The aortic valve is calcified but opens well. Doppler and Color Flow revealed no significant aortic r egurgitation. There is no significant aortic valvular stenosis. MITRAL VALVE The mitral valve is normal in structure and function. There is no evidence of mitral valve prolapse. There is no mitral valve stenosis. Doppler and Color-flow revealed moderate mitral regurgitation. TRICUSPID VALVE The tricuspid valve is normal in structure and function. Doppler and Color Flow revealed mild to mode rate tricuspid regurgitation. The PA pressure was estimated at 48 mmHg. There is no tricuspid valve s tenosis. PULMONIC VALVE The pulmonic valve is not well visualized. Doppler and Color Flow revealed no pulmonic valvular regur gitation. There is no pulmonic valvular stenosis. GREAT VESSELS The aortic root is normal in size. The ascending aorta is normal in size. The IVC is normal in size a nd collapses >50% with inspiration. PERICARDIAL EFFUSION There is no evidence of significant pericardial effusion. Critical Notification Critical Value: No <Conclusion> The left ventricle is normal size. The systolic function is mildly impaired. The ejection fraction is estimated at 40%. There is mild global hypokinesis of the left ventricle. Doppler and Color Flow revealed no significant aortic regurgitation. There is no significant aortic valvular stenosis. Doppler and Color-flow revealed moderate mitral regurgitation. Doppler and Color Flow revealed mild to moderate tricuspid regurgitation. The PA pressure was estimated at 48 mmHg. Signed by : Karlo Fuentes MD Electronically Approved : 11/13/2019 11:58:43
--- NOTE | 2019-11-13 12:03 | PDOC ---
Objective: Objective: Has DC order. No GI concerns per nurse. Vital Signs: Vital Signs Date Time Temp Pulse Resp B/P (MAP) Pulse Ox O2 Delivery O2 Flow Rate FiO2 11/13/19 11:00 98.0 107 18 164/94 (117) 98 Room Air 98.0 Labs: Laboratory Tests Test 11/13/19 03:45 Sodium Level 142 mmol/L Potassium Level 3.5 mmol/L Chloride Level 99 mmol/L Carbon Dioxide Level 34 mmol/L Anion Gap 9 Blood Urea Nitrogen 41 mg/dL Creatinine 1.7 mg/dL Estimated GFR (Cockcroft-Gault) 31.1 Glucose Level 99 mg/dL Calcium Level 9.3 mg/dL Magnesium Level 1.7 mg/dL Imaging: Echo <Conclusion> The left ventricle is normal size. The systolic function is mildly impaired. The ejection fraction is estimated at 40%. There is mild global hypokinesis of the left ventricle. Doppler and Color Flow revealed no significant aortic regurgitation. There is no significant aortic valvular stenosis. Doppler and Color-flow revealed moderate mitral regurgitation. Doppler and Color Flow revealed mild to moderate tricuspid regurgitation. The PA pressure was estimated at 48 mmHg. PE: out of room for echo A/P: HTN, CHF, peripheral edema, FADIA/CKD Hep C Ascites, hepatomegaly Substance abuse -- Discharge plans noted. RELL ELIAS Nov 13, 2019 12:03
--- NOTE | 2019-11-13 12:52 | PDOC ---
Renal-Progress Notes Subjective Notes Notes NONE History of Present Illness Hx of present illness NO CHANGE Vitals Vitals Vital Signs Date Time Temp Pulse Resp B/P (MAP) Pulse Ox O2 Delivery O2 Flow Rate FiO2 11/13/19 11:00 98.0 107 18 164/94 (117) 98 Room Air 98.0 Weight Weight [ ] I.O. Intake and Output Intake and Output 11/13/19 07:00 Intake Total 900 ml Balance 900 ml Intake Oral 900 ml # Voids 4 Labs Labs Laboratory Tests Test 11/13/19 03:45 Sodium Level 142 mmol/L (136-145) Potassium Level 3.5 mmol/L (3.5-5.1) Chloride Level 99 mmol/L (98-107) Carbon Dioxide Level 34 mmol/L (21-32) Anion Gap 9 (6-14) Blood Urea Nitrogen 41 mg/dL (7-20) Creatinine 1.7 mg/dL (0.6-1.0) Estimated GFR (Cockcroft-Gault) 31.1 Glucose Level 99 mg/dL (70-99) Calcium Level 9.3 mg/dL (8.5-10.1) Magnesium Level 1.7 mg/dL (1.8-2.4) Review of Systems Constitutional: yes: weakness, alert Ears/Nose/Throat: Yes: no symptom reported Eyes: Yes: no symptom reported Pulmonary: Yes no symptom reported Cardiovascular: Yes no symptom reported Gastrointestional: Yes: no symptom reported Genitourinary: Yes: no symptom reported Musculoskeletal: Yes: no symptom reported Skin: Yes no symptom reported Psychiatric/Neurological: Yes: no symptom reported Endocrine: Yes: no symptom reported Physical Exam General Appearance: no apparent distress Skin: warm Respiratory: bilateral CTA Heart: S1S2 Abdomen: bowel sounds present Genitourinary: bladder flat Extremities: no edema Neurology: alert, oriented Assessment Assessment IMP CHF-IMPROVED RENAL FAILURE-SUSPECT FADIA ATOP CKD-CR STABLE AT 1.7 SUSPECT CKD STAGE 3 EDEMA/ANASARCA MALIGNANT HTN-NOT CONTROLLED-IMPROVED NON COMPLIANCE PLAN CONTROL BP UA NEG FOR NEPHRITIS IMAGING CT NEG FOR ANY RENAL MORPHOLOGICAL CHANGES D/C PLANS NOTED FIDELINA SHAFFER MD Nov 13, 2019 12:52
--- NOTE | 2019-11-13 12:54 | NUR ---
SS following for discharge planning. SS reviewed pt chart. Pt is from home and is currently on room air. Discharge order on the chart for home with self care.
[2019-11-13 15:00] VITALS: BP 152/100
[2019-11-13] MEDS ORDERED: MAGNESIUM OXIDE 400 MG TABLET PO SCH (15:00)
[2019-11-13] MEDS ORDERED: CARV3.12 PO (15:04)
[2019-11-13] MEDS ORDERED: ASPI-630 PO (15:05)
--- NOTE | 2019-11-13 15:14 | PDOC ---
CARDIO Progress Notes Date and Time Date of Service 11/13/2019 Time of Evaluation 1210 Vitals Vitals Vital Signs Date Time Temp Pulse Resp B/P (MAP) Pulse Ox O2 Delivery O2 Flow Rate FiO2 11/13/19 11:00 98.0 107 18 164/94 (117) 98 Room Air 98.0 Weight Weight [ ] Input and Output Intake and Output Intake and Output 11/13/19 07:00 Intake Total 900 ml Balance 900 ml Intake Oral 900 ml # Voids 4 Laboratory Labs Laboratory Tests Test 11/13/19 03:45 Sodium Level 142 mmol/L (136-145) Potassium Level 3.5 mmol/L (3.5-5.1) Chloride Level 99 mmol/L (98-107) Carbon Dioxide Level 34 mmol/L (21-32) Anion Gap 9 (6-14) Blood Urea Nitrogen 41 mg/dL (7-20) Creatinine 1.7 mg/dL (0.6-1.0) Estimated GFR (Cockcroft-Gault) 31.1 Glucose Level 99 mg/dL (70-99) Calcium Level 9.3 mg/dL (8.5-10.1) Magnesium Level 1.7 mg/dL (1.8-2.4) Review of Systems Constitutional: yes: weakness, alert Ears/Nose/Throat: Yes: no symptom reported Eyes: Yes: no symptom reported Pulmonary: Yes no symptom reported Cardiovascular: Yes no symptom reported Gastrointestional: Yes: no symptom reported Genitourinary: Yes: no symptom reported Musculoskeletal: Yes: no symptom reported Skin: Yes no symptom reported Psychiatric/Neurological: Yes: no symptom reported Endocrine: Yes: no symptom reported Physical Exam HEENT: Neck Supple W Full Motion Chest: Symmetric LUNGS: Other (faint basilar wheeze) Heart: RRR (SR), murmurs (3/6 systolic apical murmur), other (sinus tachy) Abdomen: Soft N/T Extremities: Other (2+ bilateral pitting edema) Neurology: alert, oriented, follow commands Assessment Assessment 1. Acute on chronic combined diastolic/systolic CHF 2. Cardiomyopathy: presume toxic CM. EF at 40% 3. FADIA on CKD: Cr better at 1.7 4. Anasarca with hx of hep C: GI following 5. Accelerated HTN: mildly labile 6. Substance abuse: UDS+ for amphetamines and marijuana 7. Noncompliance 8. Tobaccoism 9. Polyvalvular insufficiency: mod MR, mild to mod TR 10. Suspect COPD: defer to PCP 11. Mild trop elevation: suspect demand mediated with associated CHF, renal insufficiency and meth use. CP free Recommendations 1. Lasix therapy. K replacement 2. Discussed treatment compliance and complete cessation of amphetamines/marijuana and tobacco use 3. No ACEi/ARB for now 4. Continue amlodipine, add low dose coreg. ASA. Check lipids for any statin needs 5. Follow up in office. Depending on her complaince will consider for outpt stress test. RAYMOND CANO [employer] Nov 13, 2019 15:13
[2019-11-13] MEDS ORDERED: POTASSIUM CHLORIDE 20 MEQ TABLET.ER. PO ONE (15:15)
[2019-11-13 16:25] LABS: CHOLESTEROL/HDL RATIO 2.5
[2019-11-13 16:44] VITALS: BP 152/100
[2019-11-13] MEDS ORDERED: CARVEDILOL 3.125 MG TABLET. PO SCH (17:00)
--- NOTE | 2019-11-13 17:13 | NUR ---
Discharge Note: ASHA AREVALO Discharge instructions and discharge home medications reviewed with Patient and a copy given. All questions have been answered and understanding verbalized. The following instructions and handouts were given: amlodipine, carvedilol, furosemide Patient discharged to home with family via wheelchair
[2019-11-14] MEDS ORDERED: ASPIRIN ENTERIC COATED 81 MG TABLET.DR. PO SCH (08:00)
== END 2019-11-13 17:15 | disposition home or self-care (01) | DRG 291 ==
LOC: ER 19:44 → 2 SOUTH 22:01
PROVIDERS: ADMIT Internal Medicine; ATTEND Internal Medicine
DX: I13.0 Hypertensive heart and chronic kidney disease with heart failure and stage 1 through stage 4 chronic kidney disease, or unspecified chronic kidney disease (principal); I50.43 Acute on chronic combined systolic (congestive) and diastolic (congestive) heart failure; I31.3 Pericardial effusion (noninflammatory); R18.8 Other ascites; N17.9 Acute kidney failure, unspecified; I24.8 Other forms of acute ischemic heart disease; K57.90 Diverticulosis of intestine, part unspecified, without perforation or abscess without bleeding; I42.9 Cardiomyopathy, unspecified; I25.10 Atherosclerotic heart disease of native coronary artery without angina pectoris; F17.210 Nicotine dependence, cigarettes, uncomplicated; M43.16 Spondylolisthesis, lumbar region; N18.9 Chronic kidney disease, unspecified; B19.20 Unspecified viral hepatitis C without hepatic coma; F12.10 Cannabis abuse, uncomplicated; F15.10 Other stimulant abuse, uncomplicated; Z91.19 Patient's noncompliance with other medical treatment and regimen
CPT/HCPCS: 36415; 71045; 74176; 80048; 80053; 80061; 80307; 81001; 82553; 83690; 83735; 83880; 84443; 84484; 85025; 85610; 90471; 90686; 93005; 93306; G0480; J1200; J1940; J3010; J3490; G0378